=== PATIENT | female | born 1950 | race Caucasian/White ===

== ENCOUNTER 2016-12-07 12:05 | Observation (INO) | payer MEDICARE ==
[~2016-12-07] VITALS: Ht 149.9 cm; Wt 60.0 kg
[2016-12-07] VITALS (9 sets, daily range): BP systolic 102–162; BP diastolic 60–86; PULSE 75–86; RESP 16–20; TEMP 98–98.9; O2SAT 95–98
[~2016-12-07 12:05] MED LIST: ALEN1TAB48 PO; AMIO200T PO; ASPI-110 PO; Aspirin Chew PO; CALC1TAB30 PO; CYAN1TAB24 PO; DICL50TA3 PO; GLUC15009 PO; HYDR-3516 PO; KRIL300C PO; LEVO100T5 PO; LIPI40TA PO; METO25TA3 PO; MISO200T PO; PANT40TA3 PO; PLAV75TA29 PO; PRIM250T5 PO; PYRI100T PO; TEGR200T PO; TRIA37.5 PO; VITA100C2 PO
[2016-12-07] MEDS ORDERED: NITROGLYCERIN 0.4 MG SL 25 TABS/BTL SL ONE (12:15)
[2016-12-07] MEDS ORDERED: SODIUM CHLORIDE 0.9% FLUSH 5 ML FLUSH IVF PRN (12:15)
[2016-12-07] MEDS ORDERED: ASPIRIN 81 MG CHEW TAB PO ONE (12:15)
[2016-12-07 12:36] LABS: AUTOMATED NEUTROPHIL # 11.8 TH/MM3 (1.8-7.7); BASOPHIL # 0.1 TH/MM3 (0-0.2); BASOPHIL % 0.4 % (0.0-2.0); EOSINOPHIL # 0.5 TH/MM3 (0-0.4); EOSINOPHIL % 3.6 % (0.0-4.0); HEMATOCRIT 35.3 % (35.0-46.0); HEMO FLAGS DIFF FINAL; LYMPH % 5.5 % (9.0-44.0); LYMPHOCYTE # 0.8 TH/MM3 (1.0-4.8); MEAN CELL VOLUME 90.8 FL (80.0-100.0); MEAN CORPUSCULAR HEMOGLOBIN 29.9 PG (27.0-34.0); MEAN CORPUSCULAR HGB CONC 32.9 % (32.0-36.0); MONO % 6.7 % (0.0-8.0); NEUT % 83.8 % (16.0-70.0); PLATELET COUNT 575 TH/MM3 (150-450); RED BLOOD COUNT 3.88 MIL/MM3 (4.00-5.30); RED CELL DISTRIBUTION WIDTH 16.9 % (11.6-17.2); WHITE BLOOD COUNT 14.1 TH/MM3 (4.0-11.0)
[2016-12-07] MEDS ORDERED: BENA25CA4 PO (12:50)
[2016-12-07] MEDS ORDERED: FISH500C PO (12:50)
--- NOTE | 2016-12-07 12:53 | RADRPT ---
EXAM DATE/TIME: 12/07/2016 12:26 [facility] COMPARISON: CHEST SINGLE AP, November 24, 2016, 6:04. INDICATIONS : Chest pain post triple bypass on 11/23/16. MEDICAL HISTORY : None. SURGICAL HISTORY : CABG. ENCOUNTER: Initial ACUITY: 2 weeks PAIN SCORE: 10/10 LOCATION: Bilateral chest FINDINGS: Minimal parenchymal changes are present in the left base. The right lung is clear. Sternal wires an d bypass are noted. There is no pneumothorax. CONCLUSION: Minimal parenchymal changes left base increased from the comparison study. Sreekanth Contreras MD FACR on December 07, 2016 at 12:51 Board Certified Radiologist. This report was verified electronically.
[2016-12-07 12:54] LABS: ANION GAP 9 MEQ/L (5-15); APTT (PATIENT) 24.6 SEC (24.3-30.1); AST (GOT) 29 U/L (15-37); BICARBONATE 27.2 MEQ/L (21.0-32.0); BLOOD UREA NITROGEN 17 MG/DL (7-18); CHLORIDE 104 MEQ/L (98-107); GLOMERULAR FILTRATION RATE 61 ML/MIN (>89); INTERNATIONAL NORMALIZED RATIO 1.1 RATIO; MAGNESIUM 1.7 MG/DL (1.5-2.5); PROTHROMBIN TIME - PATIENT 12.4 SEC (9.8-11.6); SODIUM (NA) 140 MEQ/L (136-145)
[2016-12-07 12:59] LABS: ALKALINE PHOSPHATASE 84 U/L (45-117); ALT (GPT) 22 U/L (10-53); TOTAL BILIRUBIN ADULT 0.2 MG/DL (0.2-1.0)
--- NOTE | 2016-12-07 13:05 | PD ---
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 Zuluaga. [facility] today she started to develop chest pain again. She states that her drains were pulled out about a week or so ago. She's had chronic back pain since that time. She states she has been having there use her arms herself out of bed some. States she was sitting down icing her left leg where she had a vein harvest when she had the abrupt onset of the pain. States pain feels similar when she had her heart attack back in October. She otherwise had been feeling generally well prior to that. She does complain of some pain and swelling just above her knee on the left side where she had a harvest done. History Past Medical History Narrative Medical CAD, recent CABG Hypothyroidism Seizure Arthritis Hyperlipidemia Hypertension CKD Influenza Vaccination: Yes Menopausal: Yes Social History Alcohol Use: No Tobacco Use: No Allergies-Medications (Allergen,Severity, Reaction): Coded Allergies: Dilantin (Verified Allergy, Severe, HIVES, 12/07/16) Codeine (Verified Allergy, Unknown, 12/07/16) *MDRO Multi-Drug Resistant Organism (Verified Adverse Reaction, Unknown, MRSA, 12/07/16) MRSA screen POSITIVE - 11/22/16 Reported Meds & Prescriptions Reported Meds & Active Scripts Active Hydrocodone-Acetaminophen 5-325 mg Tab 1 Tab PO Q3H PRN Pantoprazole (Pantoprazole Sodium) 40 Mg Tab 40 Mg PO DAILY@06 Metoprolol Tartrate 25 Mg Tab 12.5 Mg PO BID Plavix (Clopidogrel Bisulfate) 75 Mg Tab 75 Mg PO DAILY Lipitor (Atorvastatin Calcium) 40 Mg Tab 80 Mg PO HS Amiodarone (Amiodarone HCl) 200 Mg Tab 200 Mg PO Q12HR Reported Benadryl Allergy (Diphenhydramine HCl) 25 Mg Cap 25 Mg PO Q6HR PRN Fish Oil ([place]-3 Fatty Acids) 500 Mg Cap 500 Mg PO DAILY Vitamin B-6 (Pyridoxine HCl) 100 Mg Tab 100 Mg PO DAILY Aspirin 81 (Aspirin) 81 Mg Tabdr 81 Mg PO DAILY Vitamin E 100 Unit Cap 100 Units PO DAILY Glucosamine 1,500 Mg Tab 1,500 Mg PO DAILY Calcium 600 + D (Calcium Carbonate-Cholecalciferol) 600-200 Mg-Unit Tab 1 Tab PO BID Alendronate (Alendronate Sodium) 70 Mg Tab 70 Mg PO Q7D Levothyroxine (Levothyroxine Sodium) 100 Mcg Tab 100 Mcg PO DAILY Triamterene-Hydrochlorothiazide 37.5-25 Mg Tab 1 Tab PO DAILY Diclofenac Sodium DR (Diclofenac Sodium) 50 Mg Tabdr 50 Mg PO BID Misoprostol 200 Mcg Tab 200 Mcg PO BID Tegretol (Carbamazepine) 200 Mg Tab 200 Mg PO TID Primidone 250 Mg Tab 250 Mg PO BID Review of Systems Except as stated in HPI: all other systems reviewed are Neg Physical Exam Narrative GENERAL: Well-appearing 66-year-old woman. Holding her left chest. Does not appear to be in acute distress. SKIN: Warm and dry. HEAD: Atraumatic. Normocephalic. CARDIOVASCULAR: Regular rate and rhythm. No murmur appreciated. No rub. RESPIRATORY: No accessory muscle use. Clear to auscultation. Breath sounds equal bilaterally. GASTROINTESTINAL: Abdomen soft, non-tender, nondistended. Hepatic and splenic margins not palpable. MUSCULOSKELETAL: No obvious deformities. Some edema of the left leg. The incisions on the left leg appear to be healing well. There is some palpable firmness in the distal thigh just above the knee medially. NEUROLOGICAL: Awake and alert. No obvious cranial nerve deficits. Motor grossly within normal limits. Normal speech. PSYCHIATRIC: Appropriate mood and affect; insight and judgment normal. Data Data Last Documented VS Vital Signs Date Time Temp Pulse Resp B/P Pulse Ox O2 Delivery O2 Flow Rate FiO2 12/07/16 14:06 86 19 121/69 98 Nasal Cannula 2 12/07/16 12:06 98.9 Orders Electrocardiogram (12/07/16 12:11) B-Type Natriuretic Peptide (12/07/16 12:11) Complete Blood Count With Diff (12/07/16 12:11) Comprehensive Metabolic Panel (12/07/16 12:11) D-Dimer (12/07/16 12:11) Magnesium (Mg) (12/07/16 12:11) Prothrombin Time / Inr (Pt) (12/07/16 12:11) Act Partial Throm Time (Ptt) (12/07/16 12:11) Troponin I (12/07/16 12:11) Lipase (12/07/16 12:11) Chest, Single Ap (12/07/16 12:11) Ecg Monitoring (12/07/16 12:11) Bilateral Bp Monitoring (12/07/16 12:11) Iv Access Insert/Monitor (12/07/16 12:11) Oximetry (12/07/16 12:11) Oxygen Administration (12/07/16 12:11) Aspirin Chew (Aspirin Chew) (12/07/16 12:15) Sodium Chloride 0.9% Flush (Ns Flush) (12/07/16 12:15) Nitroglycerin Sl (Nitrostat Sl) (12/07/16 12:15) Ct Pulmonary Angiogram (12/07/16 ) Consult Cardiology (12/07/16 ) Admit Order (Ed Use Only) (12/07/16 ) Admit To Inpatient (12/07/16 ) Code Status (12/07/16 14:24) Vital Signs (Adult) Q4H (12/07/16 14:24) Activity Oob With Assistance (12/07/16 14:24) ^ Irrigation Worker / Telemetry .CONTINUOUS (12/07/16 14:24) Diet Heart Healthy (12/07/16 Dinner) Sodium Chloride 0.9% Flush (Ns Flush) (12/07/16 14:30) Sodium Chloride 0.9% Flush (Ns Flush) (12/07/16 21:00) Acetaminophen (Tylenol) (12/07/16 15:00) Ondansetron Inj (Zofran Inj) (12/07/16 14:30) Magnesium Hydroxide Liq (Milk Of Magnesi (12/07/16 14:30) Resp Oxygen Vicente C Titrat 1-4 L (12/07/16 ) Pt Request For Service (12/07/16 14:24) Scd Bilateral/Knee High MARIAJOSE.BID (12/07/16 14:24) Naloxone Inj (Narcan Inj) (12/07/16 14:30) Inpatient Certification (12/07/16 ) ^ Notify Dr: Other (12/07/16 ) Nitroglycerin Sl (Nitrostat Sl) (12/07/16 14:30) Creatine Kinase (Cpk) (12/07/16 14:25) Creatine Kinase (Cpk) (12/07/16 20:25) Troponin I (12/07/16 14:25) Troponin I (12/07/16 20:25) Electrocardiogram (12/07/16 14:25) Electrocardiogram (12/07/16 20:25) Labs Laboratory Tests Test 12/07/16 12:20 White Blood Count 14.1 TH/MM3 Red Blood Count 3.88 MIL/MM3 Hemoglobin 11.6 GM/DL Hematocrit 35.3 % Mean Corpuscular Volume 90.8 FL Mean Corpuscular Hemoglobin 29.9 PG Mean Corpuscular Hemoglobin 32.9 % Concent Red Cell Distribution Width 16.9 % Platelet Count 575 TH/MM3 Mean Platelet Volume 7.4 FL Neutrophils (%) (Auto) 83.8 % Lymphocytes (%) (Auto) 5.5 % Monocytes (%) (Auto) 6.7 % Eosinophils (%) (Auto) 3.6 % Basophils (%) (Auto) 0.4 % Neutrophils # (Auto) 11.8 TH/MM3 Lymphocytes # (Auto) 0.8 TH/MM3 Monocytes # (Auto) 1.0 TH/MM3 Eosinophils # (Auto) 0.5 TH/MM3 Basophils # (Auto) 0.1 TH/MM3 CBC Comment DIFF FINAL Differential Comment Prothrombin Time 12.4 SEC Prothromb Time International 1.1 RATIO Ratio Activated Partial 24.6 SEC Thromboplast Time D-Dimer Quantitative (PE/DVT) 5.59 MG/L FEU Sodium Level 140 MEQ/L Potassium Level 4.0 MEQ/L Chloride Level 104 MEQ/L Carbon Dioxide Level 27.2 MEQ/L Anion Gap 9 MEQ/L Blood Urea Nitrogen 17 MG/DL Creatinine 0.92 MG/DL Estimat Glomerular Filtration 61 ML/MIN Rate Random Glucose 99 MG/DL Calcium Level 8.0 MG/DL Magnesium Level 1.7 MG/DL Total Bilirubin 0.2 MG/DL Aspartate Amino Transf 29 U/L (AST/SGOT) Alanine Aminotransferase 22 U/L (ALT/SGPT) Alkaline Phosphatase 84 U/L Troponin I 0.03 NG/ML B-Type Natriuretic Peptide 163 PG/ML Total Protein 6.6 GM/DL Albumin 2.4 GM/DL Lipase 380 U/L [facility] Medical Decision Making Medical Screen Exam Complete: Yes Emergency Medical Condition: Yes Interpretation(s) My review of EKG: Normal sinus rhythm at a rate of 87, leftward axis, lateral T wave inversions. Compared to previous EKG from November 24, no significant change in extensive T-wave inversions. LABS: CBC remarkable for mild leukocytosis. CMP unremarkable Troponin negative BNP 163 Lipase normal D-dimer 5.59 Chest x-ray: Minimal parenchymal changes of the left base. CTA: Negative for PE. Lower lobe parenchymal consolidation a small moderate left-sided pleural effusion. Differential Diagnosis Myocardial ischemia, PE, sternal pain, pericarditis, other Narrative Course Medical decision making INITIAL: 66 year-old woman presents to the emergency department status post CABG with chest pain. EKG shows diffuse T wave inversions, similar to previous. Patient looks well. We'll check labs, x-ray, likely admission and discussion with cardiology. FINAL: Initial workup unremarkable. Probably musculoskeletal. Given patient's symptoms however we'll plan on admission for observation. Spoke with the Dr. Johnson, on-call [employer] admissions representative for Dr. campos, will consult on patient. Spoke with Dr. Scott, will admit patient. Yehuda Marshall MD Dec 07, 2016 13:04
[2016-12-07] MEDS ORDERED: ONDANSETRON HCL 4 MG/2 ML VIAL IVP PRN (14:30)
[2016-12-07] MEDS ORDERED: ACETAMINOPHEN/HYDROcodone 325 MG/5 MG TAB PO PRN (14:30)
[2016-12-07] MEDS ORDERED: NALOXONE HCL 0.4 MG/ML AMP IV PRN (14:30)
[2016-12-07] MEDS ORDERED: NITROGLYCERIN 0.4 MG SL 25 TABS/BTL SL PRN (14:30)
[2016-12-07] MEDS ORDERED: MAGNESIUM HYDROXIDE SUSP 30 ML CUP PO PRN (14:30)
[2016-12-07] MEDS ORDERED: SODIUM CHLORIDE 0.9% FLUSH 5 ML FLUSH FLUSH PRN (14:30)
[2016-12-07] MEDS ORDERED: diphenhydrAMINE HCL 25 MG CAP PO PRN (14:30)
[2016-12-07] MEDS ORDERED: IOHEXOL 350 MG/ML 10 ML VIAL (for RAD DIAG) IV ONE (14:35)
[2016-12-07] MEDS ORDERED: ACETAMINOPHEN 325 MG TAB PO PRN (15:00)
--- NOTE | 2016-12-07 15:12 | RADRPT ---
EXAM DATE/TIME: 12/07/2016 14:10 [facility] COMPARISON: CHEST SINGLE AP, December 07, 2016, 12:26. INDICATIONS : Stabbing chest pain that radiates to back, pedal edema. IV CONTRAST: 79 cc Omnipaque 350 (iohexol) IV RADIATION DOSE: 23.14 CTDIvol (mGy) MEDICAL HISTORY : Seizures. Hypertension. Cardiovascular disease SURGICAL HISTORY : Tubal ligation. CABG ENCOUNTER: Initial ACUITY: 1 day PAIN SCALE: 7/10 LOCATION: chest TECHNIQUE: Volumetric scanning of the chest was performed using a pulmonary embolism protocol MIP images were re constructed. Using automated exposure control and adjustment of the mA and/or kV according to patien t size, radiation dose was kept as low as reasonably achievable to obtain optimal diagnostic quality images. FINDINGS: PULMONARY ARTERIES: No filling defects are seen in the pulmonary arteries through the segmental level. LUNGS: Parenchymal consolidation left lower lobe PLEURAE: Moderate size left pleural effusion MEDIASTINUM: There is good visualization of the great vessels of the middle mediastinum. No evidence of mediastin al or hilar adenopathy/mass. MUSCULOSKELETAL: Within normal limits for patient age. Evidence of prior median sternotomy probable CABG MISCELLANEOUS: The visualized upper abdominal organs demonstrate no acute abnormality. CONCLUSION: Negative for pulmonary embolization. Left lower lobe parenchymal consolidation with small to moderate size the left pleural effusion Greg Sandoval MD on December 07, 2016 at 15:08 Board Certified Radiologist. This report was verified electronically.
--- NOTE | 2016-12-07 17:22 | HHI.HP ---
HPI Service [facility] Hospitalists Primary Care Physician Rob Isaacs Jr, MD Admission Diagnosis chest pain, rule out [place] Chief Complaint: chest pain Travel History International Travel<30 Days: No Contact w/Intl Traveler <30 Da: No Traveled to Known Affected Are: No History of Present Illness Pt is a 66 y/o F admitted at [facility] 11/21-11/27/16 d/t STEMI. Pt underwent LHC 11/21/[address] Easton Douglass and was recommended for CABG. Pt underwent 3V CABG with Dr. Dougie Zuluaga 11/23/16. Pt did well postoperatively and was transferred [facility]. On the day of admission pt developed left sided chest pain which started at 11AM and was continuous for 2 hours. Pt described the pain as severe. pt denied SOB, n/v, or diaphoresis. Pt's pain radiated through to her left back. Pain is worse when she takes a deep breath. Pt was admitted to [facility] for further evaluation and treatment. Review of Systems Constitutional: DENIES: Diaphoretic episodes, Fatigue, Fever, Weight gain, Weight loss, Chills, Dizziness, Change in appetite, Night Sweats Endocrine: DENIES: Heat/cold intolerance, Polydipsia, Polyuria, Polyphagia Eyes: DENIES: Blurred vision, Diplopia, Eye inflammation, Eye pain, Vision loss , Photosensitivity, Double Vision Ears, nose, mouth, throat: DENIES: Tinnitus, Hearing loss, Vertigo, Nasal discharge, Oral lesions, Throat pain, Hoarseness, Ear Pain, Running Nose, Epistaxis, Sinus Pain, Toothache, Odynophagia Respiratory: DENIES: Apneas, Cough, Snoring, Wheezing, Hemoptysis, Sputum production, Shortness of breath Cardiovascular: COMPLAINS OF: Chest pain, DENIES: Palpitations, Syncope, Dyspnea on Exertion, PND, Lower Extremity Edema, Orthopnea, Claudication Gastrointestinal: DENIES: Abdominal pain, Black stools, Bloody stools, BRB per rectum, Constipation, Diarrhea, GERD, Nausea, Reflux, Vomiting, Difficulty Swallowing, Anorexia Genitourinary: COMPLAINS OF: Dyspareunia, DENIES: Urinary frequency, Urinary incontinence, Urgency, Hematuria, Dysuria, Nocturia Musculoskeletal: DENIES: Joint pain, Muscle aches, Stiffness, Joint Swelling, Back pain, Neck pain Integumentary: DENIES: Abnormal pigmentation, Pruritus, Rash, Nail changes, Breast masses, Breast skin changes, Nipple discharge Hematologic/lymphatic: DENIES: Bruising, Lymphadenopathy Immunologic/allergic: DENIES: Eczema, Urticaria Neurologic: DENIES: Abnormal gait, Headache, Localized weakness, Paresthesias, Seizures, Speech Problems, Tremor, Poor Balance Psychiatric: DENIES: Anxiety, Confusion, Mood changes, Depression, Hallucinations, Agitation, Suicidal Ideation, Homicidal Ideation, Delusions, History of Bipolar, History of Schizophrenia Past Family Social History Past Medical History 1) HTN 2) CAD 3) seizure disorder 4) osteoporosis 5) hyperlipidemia 6) CKD, stage 3 7) GERD Past Surgical History 1) 3V CABG performed by Dr. Dougie Zuluaga 11/23/16 2) D&C 3) eyelid surgery 4) BTL Reported Medications Reported Meds & Active Scripts Active Hydrocodone-Acetaminophen 5-325 mg Tab 1 Tab PO Q3H PRN Pantoprazole (Pantoprazole Sodium) 40 Mg Tab 40 Mg PO DAILY@06 Metoprolol Tartrate 25 Mg Tab 12.5 Mg PO BID Plavix (Clopidogrel Bisulfate) 75 Mg Tab 75 Mg PO DAILY Lipitor (Atorvastatin Calcium) 40 Mg Tab 80 Mg PO HS Amiodarone (Amiodarone HCl) 200 Mg Tab 200 Mg PO Q12HR Reported Benadryl Allergy (Diphenhydramine HCl) 25 Mg Cap 25 Mg PO Q6HR PRN Fish Oil ([place]-3 Fatty Acids) 500 Mg Cap 500 Mg PO DAILY Vitamin B-6 (Pyridoxine HCl) 100 Mg Tab 100 Mg PO DAILY Aspirin 81 (Aspirin) 81 Mg Tabdr 81 Mg PO DAILY Vitamin E 100 Unit Cap 100 Units PO DAILY Glucosamine 1,500 Mg Tab 1,500 Mg PO DAILY Calcium 600 + D (Calcium Carbonate-Cholecalciferol) 600-200 Mg-Unit Tab 1 Tab PO BID Alendronate (Alendronate Sodium) 70 Mg Tab 70 Mg PO Q7D Levothyroxine (Levothyroxine Sodium) 100 Mcg Tab 100 Mcg PO DAILY Triamterene-Hydrochlorothiazide 37.5-25 Mg Tab 1 Tab PO DAILY Diclofenac Sodium DR (Diclofenac Sodium) 50 Mg Tabdr 50 Mg PO BID Misoprostol 200 Mcg Tab 200 Mcg PO BID Tegretol (Carbamazepine) 200 Mg Tab 200 Mg PO TID Primidone 250 Mg Tab 250 Mg PO BID Allergies: Coded Allergies: Dilantin (Verified Allergy, Severe, HIVES, 12/07/16) Codeine (Verified Allergy, Unknown, 12/07/16) *MDRO Multi-Drug Resistant Organism (Verified Adverse Reaction, Unknown, MRSA, 12/07/16) MRSA screen POSITIVE - 11/22/16 Family History Non-contributory Social History - former smoker, smoked 44 years, quit in 2007 - no alcohol - no illicit street drugs Physical Exam Vital Signs Vital Signs Date Time Temp Pulse Resp B/P Pulse Ox O2 Delivery O2 Flow Rate FiO2 12/07/16 16:00 83 16 112/71 98 Nasal Cannula 2 12/07/16 14:06 86 19 121/69 98 Nasal Cannula 2 12/07/16 12:15 155/77 128/79 12/07/16 12:14 Nasal Cannula 2 12/07/16 12:14 96 Room Air 12/07/16 12:08 Nasal Cannula 2 12/07/16 12:06 98.9 86 18 162/86 96 Physical Exam GENERAL: This is a well-nourished, well-developed patient, in no apparent distress. SKIN: No rashes, ecchymoses or lesions. Cool and dry. HEAD: Atraumatic. Normocephalic. No temporal or scalp tenderness. EYES: Pupils equal round and reactive. Extraocular motions intact. No scleral icterus. No injection or drainage. ENT: Nose without bleeding, purulent drainage or septal hematoma. Throat without erythema, tonsillar hypertrophy or exudate. Uvula midline. Airway patent. NECK: Trachea midline. No JVD or lymphadenopathy. Supple, nontender, no meningeal signs. CARDIOVASCULAR: Regular rate and rhythm without murmurs, gallops, or rubs. RESPIRATORY: Clear to auscultation. Breath sounds equal bilaterally. No wheezes , rales, or rhonchi. GASTROINTESTINAL: Abdomen soft, non-tender, nondistended. No hepato-splenomegaly , or palpable masses. No guarding. MUSCULOSKELETAL: Extremities without clubbing, cyanosis, or edema. No joint tenderness, effusion, or edema noted. No calf tenderness. Negative Homans sign bilaterally. NEUROLOGICAL: Awake and alert. Cranial nerves II through XII intact. Motor and sensory grossly within normal limits. Five out of 5 muscle strength in all muscle groups. Normal speech. Laboratory Laboratory Tests Test 12/07/16 12/07/16 12:20 14:30 White Blood Count 14.1 Red Blood Count 3.88 Hemoglobin 11.6 Hematocrit 35.3 Mean Corpuscular Volume 90.8 Mean Corpuscular Hemoglobin 29.9 Mean Corpuscular Hemoglobin 32.9 Concent Red Cell Distribution Width 16.9 Platelet Count 575 Mean Platelet Volume 7.4 Neutrophils (%) (Auto) 83.8 Lymphocytes (%) (Auto) 5.5 Monocytes (%) (Auto) 6.7 Eosinophils (%) (Auto) 3.6 Basophils (%) (Auto) 0.4 Neutrophils # (Auto) 11.8 Lymphocytes # (Auto) 0.8 Monocytes # (Auto) 1.0 Eosinophils # (Auto) 0.5 Basophils # (Auto) 0.1 CBC Comment DIFF FINAL Differential Comment Prothrombin Time 12.4 Prothromb Time International 1.1 Ratio Activated Partial 24.6 Thromboplast Time D-Dimer Quantitative (PE/DVT) 5.59 Sodium Level 140 Potassium Level 4.0 Chloride Level 104 Carbon Dioxide Level 27.2 Anion Gap 9 Blood Urea Nitrogen 17 Creatinine 0.92 Estimat Glomerular Filtration 61 Rate Random Glucose 99 Calcium Level 8.0 Magnesium Level 1.7 Total Bilirubin 0.2 Aspartate Amino Transf 29 (AST/SGOT) Alanine Aminotransferase 22 (ALT/SGPT) Alkaline Phosphatase 84 Troponin I 0.03 0.03 B-Type Natriuretic Peptide 163 Total Protein 6.6 Albumin 2.4 Lipase 380 Total Creatine Kinase 68 Result Diagram: 12/07/16 1220 12/07/16 1220 Imaging Last Impressions Chest X-Ray 12/07/16 1211 Signed Impressions: Service Date/Time: Wednesday, December 07, 2016 12:26 - CONCLUSION: Minimal parenchymal changes left base increased from the comparison study. Sreekanth Contreras MD FACR CT Angiography 12/07/16 0000 Signed Impressions: Service Date/Time: Wednesday, December 07, 2016 14:10 - CONCLUSION: Negative for pulmonary embolization. Left lower lobe parenchymal consolidation with small to moderate size the left pleural effusion Greg Sandoval MD Septic Shock Reassessment Heart: Regular rate and rhythm Lungs: Clear Skin: Warm Peripheral Pulses: Bounding Right Radial Bounding Left Radial Bounding Right Popliteal Bounding Left Popliteal Bounding Right Dorsalis Pedis Bounding Left Dorsalis Pedis Bounding Right Posterior Tibial Bounding Left Posterior Tibial Capillary Refill: Brisk Assessment and Plan Problem List: (1) Atypical chest pain Status: Acute Plan: - prior admission d/t STEMI 11/21-11/27/16 - 3V CABG 11/23/[address] Dougie Zuluaga - serial cardiac enzymes - serial EKGs - obtain cardiology consult - fasting lipid panel in AM - lipitor, plavix, metoprolol, ASA (2) Hypothyroid Status: Acute Plan: - levothyroxine (3) HTN (hypertension) Status: Chronic Plan: - stable - metoprolol - HCTZ (4) GERD (gastroesophageal reflux disease) Status: Chronic Plan: - protonix, misoprostol (5) Seizure disorder Status: Chronic Plan: - tegretol, primidone Problem Qualifiers (1) Hypothyroid: Qualified Code: E03.9 - Hypothyroidism, unspecified type (2) HTN (hypertension): Qualified Code: I10 - Essential hypertension (3) GERD (gastroesophageal reflux disease): Qualified Code: K21.9 - Gastroesophageal reflux disease, esophagitis presence not specified Ant Scott DO Dec 07, 2016 17:22
[2016-12-07] MEDS: carBAMazepine 200 MG TAB PO SCH (18:24)
--- NOTE | 2016-12-07 19:30 | MB ---
cc: MESERET CASSIDY ALAN S. M.D. VIEL, STEPHEN C. MD MCCOLLUM, ,DEVENDRA CHAPA DATE OF CONSULTATION: 12/07/2016. REASON FOR CONSULTATION: The patient is a 66-year-old white female I am asked to see for chest pain. HISTORY OF PRESENT ILLNESS: I have reviewed hospital records. On November 23 of last year, the patient came in with unstable angina / aborted S-T elevation MN. She underwent catheterization showing preserved ventricular function with triple-vessel disease. She had angioplasty of the posterior descending coronary artery but a stent would not pass. She subsequently underwent bypass surgery with left internal mammary artery to the LAD and vein graft to obtuse marginal #1 and the right - PDA. She has been in rehab. She has used her upper arms a lot. She notes occasional sharp substernal discomfort which is short-lived. Today, starting this morning, she has had sharp substernal discomfort which she also feels towards her back. This gets worse when she takes a deep breath. It is not positional and there are no other associated symptoms. It is better than this morning, but still present. EKG shows sinus rhythm with nonspecific T-wave changes. PAST MEDICAL HISTORY: 1. Cardiac as above. 2. Hypertension. 3. Hyperlipidemia 4. Chronic kidney disease. 5. Hypothyroidism. 6. Seizure disorder. 7. Osteoarthritis. PAST SURGICAL HISTORY: Tubal ligation. SOCIAL HISTORY: She is and her is here. She is a prior smoker but does not drink. MEDICATION ALLERGIES: 1. DILANTIN. 2. CODEINE. MEDICATION LIST: Reviewed. PRESENT MEDICATIONS: 1. Amiodarone. 2. Aspirin. 3. Atorvastatin. 4. Clopidogrel. 5. Diphenhydramine. 6. Levothyroxine. 7. Metoprolol. 8. Primidone. 9. Pyridoxine. 10. Pantoprazole. 11. Triamterene / hydrochlorothiazide. Chest x-ray showed postoperative changes with increased parenchymal changes at the left base. CT angiogram is pending. CBC remarkable for a mildly elevated white count at 14.1. PT/PTT normal with elevated D-dimer. Potassium 4.0, creatinine 0.92. Troponin negative. BNP level 163. Lipase normal. REVIEW OF SYSTEMS: Review of systems remarkable for the chest discomfort along with generalized arthritis. PHYSICAL EXAMINATION: GENERAL: On exam, she is alert and oriented times three. VITAL SIGNS: She is mildly hypertensive but afebrile. The vital signs are stable otherwise. SKIN: There are no xanthelasma and oropharyngeal mucosa normal. CHEST: With decreased breath sounds at the bases, but clear. CARDIOVASCULAR: JVD normal. S1, S2. No murmurs or gallops. ABDOMEN: Benign. EXTREMITIES: No cyanosis, clubbing or edema. PULSES: Carotids without bruits. Radials 1 to 2+. Femorals 1 to 2+ without bruits. Pedals trace to 1+. NEUROLOGIC: She was not ambulated. PROBLEMS: 1. Chest discomfort - this is pleuritic and appears noncardiac. Pulmonary embolus is being ruled out. If this is negative, I would assume that this is musculoskeletal. 2. Coronary artery disease 3. Hypertension. 4. Hyperlipidemia. 5. Hypothyroidism. RECOMMENDATIONS: 1. Continue home medication with eventual follow up with Dr. Cassidy. 2. CT angiogram results pending. Certainly she would need full anticoagulation if this were positive. 3. I will not follow but be available if needed. All questions have been answered. MD UCHE Higgins/WOO /2:27 PM /7:19 PM
--- NOTE | 2016-12-07 19:41 | EKG ---
Date Performed: 12/07/2016 Time Performed: 14:43:32 PTAGE: 66 years EKG: Sinus rhythm POSSIBLE LEFT ATRIAL ENLARGEMENT MODERATE T-WAVE ABNORMALITY, CONSIDER ANTEROLATERAL ISCHEMIA ABNORM AL ECG PREVIOUS TRACING : 12/07/2016 12.04 Since previous tracing, no significant change noted DOCTOR: Abhi Acharya Interpretating Date/Time 12/07/2016 19:39:16
--- NOTE | 2016-12-07 19:52 | EKG ---
Date Performed: 12/07/2016 Time Performed: 12:04:40 PTAGE: 66 years EKG: Sinus rhythm POSSIBLE LEFT ATRIAL ENLARGEMENT MODERATE T-WAVE ABNORMALITY, CONSIDER ANTEROLATERAL ISCHEMIA ABNORM AL ECG PREVIOUS TRACING : 11/24/2016 06.00 Since previous tracing, no significant change noted DOCTOR: Abhi Acharya Interpretating Date/Time 12/07/2016 19:51:37
[2016-12-07] MEDS: MISOPROSTOL 200 MCG TAB PO SCH (20:22)
[2016-12-07] MEDS: SODIUM CHLORIDE 0.9% FLUSH 5 ML FLUSH FLUSH SCH (20:22)
[2016-12-07] MEDS: AMIODARONE 200 MG TAB PO SCH (20:22)
[2016-12-07] MEDS: DICLOFENAC SODIUM 50 MG DELAYED RELEASE TAB PO SCH (20:23)
[2016-12-07] MEDS: PRIMIDONE 250 MG TAB PO SCH (20:23)
[2016-12-07] MEDS: METOPROLOL TARTRATE 25 MG TAB PO SCH (20:23)
[2016-12-07] MEDS ORDERED: ATORVASTATIN 40 MG TAB PO SCH (21:00)
[2016-12-08 04:09] VITALS: BP 116/62; PULSE 74; RESP 20; TEMP 98.1; O2SAT 96
[2016-12-08 05:28] VITALS: PULSE 77
[2016-12-08] MEDS ORDERED: PANTOPRAZOLE SOD 40 MG DELAYED RELEASE TAB PO SCH (06:00)
[2016-12-08 07:23] LABS: AUTOMATED NEUTROPHIL # 6.6 TH/MM3 (1.8-7.7); BASOPHIL # 0.1 TH/MM3 (0-0.2); EOSINOPHIL # 0.6 TH/MM3 (0-0.4); EOSINOPHIL % 6.2 % (0.0-4.0); HEMATOCRIT 32.4 % (35.0-46.0); HEMO FLAGS DIFF FINAL; LYMPH % 10.9 % (9.0-44.0); MEAN CELL VOLUME 90.7 FL (80.0-100.0); MEAN CORPUSCULAR HEMOGLOBIN 30.3 PG (27.0-34.0); MEAN CORPUSCULAR HGB CONC 33.4 % (32.0-36.0); MONO % 9.8 % (0.0-8.0); NEUT % 72.1 % (16.0-70.0); PLATELET COUNT 513 TH/MM3 (150-450); RED BLOOD COUNT 3.57 MIL/MM3 (4.00-5.30); RED CELL DISTRIBUTION WIDTH 16.9 % (11.6-17.2); WHITE BLOOD COUNT 9.1 TH/MM3 (4.0-11.0)
[2016-12-08 08:00] VITALS: BP 144/76; PULSE 77; PULSE 89; RESP 20; TEMP 98.2; O2SAT 98
[2016-12-08 08:32] VITALS: O2SAT 95
[2016-12-08] MEDS ORDERED: TRIAMTERENE/HCTZ 37.5 MG/25 MG TAB PO SCH (09:00)
[2016-12-08] MEDS ORDERED: ASPIRIN EC 81 MG TABEC PO SCH (09:00)
[2016-12-08] MEDS ORDERED: CLOPIDOGREL 75 MG TAB PO SCH (09:00)
[2016-12-08] MEDS: AMIODARONE 200 MG TAB PO SCH (09:00)
[2016-12-08] MEDS ORDERED: LEVOTHYROXINE SODIUM 100 MCG TAB PO SCH (09:00)
[2016-12-08] MEDS: DICLOFENAC SODIUM 50 MG DELAYED RELEASE TAB PO SCH (09:00)
[2016-12-08] MEDS: METOPROLOL TARTRATE 25 MG TAB PO SCH (10:04)
[2016-12-08] MEDS: MISOPROSTOL 200 MCG TAB PO SCH (10:04)
[2016-12-08] MEDS: SODIUM CHLORIDE 0.9% FLUSH 5 ML FLUSH FLUSH SCH (10:04)
[2016-12-08] MEDS: carBAMazepine 200 MG TAB PO SCH (10:05)
[2016-12-08] MEDS: PRIMIDONE 250 MG TAB PO SCH (10:05)
[2016-12-08 12:00] VITALS: BP 121/65; PULSE 93; RESP 20; TEMP 97.1; O2SAT 95
--- NOTE | 2016-12-08 14:38 | HHI.PR ---
Subjective Remarks No new complaints. Pt denies chest pain, palpitations, or SOB. Objective Vitals Vital Signs Date Time Temp Pulse Resp B/P Pulse Ox O2 Delivery O2 Flow Rate FiO2 12/08/16 12:00 97.1 93 20 121/65 95 12/08/16 08:32 95 21 12/08/16 08:00 89 12/08/16 08:00 98.2 77 20 144/76 98 12/08/16 05:28 77 12/08/16 04:09 98.1 74 20 116/62 96 12/07/16 23:27 98.0 75 20 102/60 95 12/07/16 21:46 16 12/07/16 21:14 98.1 83 20 140/81 97 12/07/16 20:00 97 12/07/16 18:01 85 17 117/60 98 12/07/16 16:00 83 16 112/71 98 Nasal Cannula 2 Result Diagram: 12/08/16 0700 12/07/16 1220 Imaging Last Impressions Chest X-Ray 12/07/16 1211 Signed Impressions: Service Date/Time: Wednesday, December 07, 2016 12:26 - CONCLUSION: Minimal parenchymal changes left base increased from the comparison study. Sreekanth Contreras MD FACR CT Angiography 12/07/16 0000 Signed Impressions: Service Date/Time: Wednesday, December 07, 2016 14:10 - CONCLUSION: Negative for pulmonary embolization. Left lower lobe parenchymal consolidation with small to moderate size the left pleural effusion Greg Sandoval MD Objective Remarks GENERAL: This is a well-nourished, well-developed patient, in no apparent distress. CARDIOVASCULAR: Regular rate and rhythm without murmurs, gallops, or rubs. RESPIRATORY: Clear to auscultation. Breath sounds equal bilaterally. No wheezes , rales, or rhonchi. GASTROINTESTINAL: Abdomen soft, non-tender, nondistended. Normal active bowel sounds MUSCULOSKELETAL: Extremities without clubbing, cyanosis, or edema. NEURO: Alert & Oriented x4 to person, place, time, situation. Moves all ext x4 A/P Problem List: (1) Atypical chest pain Status: Acute Plan: - prior admission d/t STEMI 11/21-11/27/16 - 3V CABG 11/23/[address] Sohit Zan - serial cardiac enzymes --> negative - serial EKGs --> NO acute ischemic changes - aprreciate cardiology consult - Case d/w Dr. Johnson (12/07/16) --> agrees with discharge back to SNF - lipitor, plavix, metoprolol, ASA - discharge back to [facility] today - see discharge orders (2) Hypothyroid Status: Acute Plan: - levothyroxine (3) HTN (hypertension) Status: Chronic Plan: - stable - metoprolol - HCTZ (4) GERD (gastroesophageal reflux disease) Status: Chronic Plan: - protonix, misoprostol (5) Seizure disorder Status: Chronic Plan: - tegretol, primidone Problem Qualifiers (1) Hypothyroid: Qualified Code: E03.9 - Hypothyroidism, unspecified type (2) HTN (hypertension): Qualified Code: I10 - Essential hypertension (3) GERD (gastroesophageal reflux disease): Qualified Code: K21.9 - Gastroesophageal reflux disease, esophagitis presence not specified Ant Scott DO Dec 08, 2016 14:38
--- NOTE | 2016-12-08 14:39 | HHI.DCPOC ---
Discharge Care Plan Diagnosis: (1) Atypical chest pain (2) Hypothyroid (3) Seizure disorder (4) GERD (gastroesophageal reflux disease) (5) HTN (hypertension) Goals to Promote Your Health * To prevent worsening of your condition and complications * To maintain your health at the optimal level Directions to Meet Your Goals Take your medications as prescribed Follow your dietary instruction Follow activity as directed Keep your appointments as scheduled Take your immunizations and boosters as scheduled If your symptoms worsen call your PCP, if no PCP go to Urgent Care Center or Emergency Room Smoking is Dangerous to Your Health. Avoid second hand smoke Call the 24-hour hour crisis hotline for domestic abuse at Ant Scott DO Dec 08, 2016 14:39
--- NOTE | 2016-12-08 15:51 | EKG ---
Date Performed: 12/07/2016 Time Performed: 21:11:22 PTAGE: 66 years EKG: Sinus rhythm LOW QRS VOLTAGE IN EXTREMITY LEADS MODERATE T-WAVE ABNORMALITY, CONSIDER ANTEROLATERAL ISCHEMIA ABNO RMAL ECG Compared to the PREVIOUS TRACING from 12/07/16 at 14:43, no significant change noted DOCTOR: Abhi Acharya Interpretating Date/Time 12/08/2016 15:50:19
== END 2016-12-08 15:51 | disposition home or self-care (01) ==
LOC: NEPC 12:05 → UNDOADMOB 14:26 → NEDA 14:26 → NEPGCP 17:56 → NEDA 17:56 → UNDODISOB 12-08 15:51
PROVIDERS: ADMIT Hospitalist; ATTEND Hospitalist
DX: R07.89 Other chest pain (principal); I25.10 Atherosclerotic heart disease of native coronary artery without angina pectoris; I12.9 Hypertensive chronic kidney disease with stage 1 through stage 4 chronic kidney disease, or unspecified chronic kidney disease; N18.3 Chronic kidney disease, stage 3 (moderate); R94.31 Abnormal electrocardiogram [ECG] [EKG]; I25.2 Old myocardial infarction; E03.9 Hypothyroidism, unspecified; E78.5 Hyperlipidemia, unspecified; G40.909 Epilepsy, unspecified, not intractable, without status epilepticus; K21.0 Gastro-esophageal reflux disease with esophagitis; M54.9 Dorsalgia, unspecified; G89.29 Other chronic pain; J90 Pleural effusion, not elsewhere classified; M19.90 Unspecified osteoarthritis, unspecified site; M81.0 Age-related osteoporosis without current pathological fracture; Z95.1 Presence of aortocoronary bypass graft; Z87.891 Personal history of nicotine dependence
CPT/HCPCS: 71010; 71275; 80053; 82550; 83690; 83735; 83880; 84484; 85025; 85379; 85610; 85730; 93005; 97162; 99285; G0378; G8987; G8988; Q9967

== ENCOUNTER 2016-12-14 16:57 | Inpatient (IN) | payer MEDICARE ==
[~2016-12-14] VITALS: Ht 149.9 cm; Wt 60.6 kg
[2016-12-14] VITALS: BP 108/59; PULSE 80; RESP 18; TEMP 98; O2SAT 94
[~2016-12-14 16:57] MED LIST changes: -Aspirin Chew PO; +BENA25CA4 PO; -CYAN1TAB24 PO; +FISH500C PO; -KRIL300C PO
[2016-12-14 17:01] VITALS: BP 153/78; PULSE 81; RESP 20; TEMP 98.1; O2SAT 96
--- NOTE | 2016-12-14 17:17 | PD ---
HPI Chief Complaint: Neuro Symptoms/ Deficits Time Seen by Provider: 17:15 Travel History International Travel<30 days: No Contact w/Intl Traveler<30days: No Traveled to known affect area: No History of Present Illness HPI 66-year-old female presents to the emergency department for evaluation of double vision, shakiness that started yesterday. She denies any headache or eye pain. No headache. No chest pain or abdominal pain. No vomiting. Patient does state that she is also on twice in the past 2 days, but did not fall. She states she fell to the right, but denies any weakness or syncope. Patient does report a history of CABG, hypertension, epilepsy, hypothyroidism. She states her last seizure was in the . She denies any fever. No vomiting. Patient was seen in October and underwent 3V CABG with Dr. Dougie Zuluaga 11/23/16. PFSH Past Medical History Asthma: No Anxiety: No Depression: No Heart Rhythm Problems: No Cancer: No Cardiovascular Problems: Yes (htn) High Cholesterol: Yes Chemotherapy: No Chest Pain: No Congestive Heart Failure: No COPD: No Diabetes: No Diminished Hearing: No Glaucoma: No Hepatitis: No Hiatal Hernia: No Hypertension: Yes Medical other: Yes (EPILEPSY) Musculoskeletal: No Neurologic: No Psychiatric: No Reproductive: No Respiratory: No Radiation Therapy: No Seizures: Yes Sleep Apnea: No Thyroid Disease: Yes Tetanus Vaccination: Unknown Menopausal: Yes Tubal Ligation: Yes Past Surgical History Gynecologic Surgery: Yes (TUBAL LIGATION) Pacemaker: No Other Surgery: Yes (bypass surgery,CABG) Social History Alcohol Use: No Tobacco Use: No Substance Use: No Allergies-Medications (Allergen,Severity, Reaction): Coded Allergies: Dilantin (Verified Allergy, Severe, HIVES, 12/14/16) Codeine (Verified Allergy, Unknown, 12/14/16) *MDRO Multi-Drug Resistant Organism (Verified Adverse Reaction, Unknown, MRSA, 12/14/16) MRSA screen POSITIVE - 11/22/16 Reported Meds & Prescriptions Reported Meds & Active Scripts Active Hydrocodone-Acetaminophen 5-325 mg Tab 1 Tab PO Q3H PRN Pantoprazole (Pantoprazole Sodium) 40 Mg Tab 40 Mg PO DAILY@06 Metoprolol Tartrate 25 Mg Tab 12.5 Mg PO BID Plavix (Clopidogrel Bisulfate) 75 Mg Tab 75 Mg PO DAILY Lipitor (Atorvastatin Calcium) 40 Mg Tab 80 Mg PO HS Amiodarone (Amiodarone HCl) 200 Mg Tab 200 Mg PO Q12HR Reported Benadryl Allergy (Diphenhydramine HCl) 25 Mg Cap 25 Mg PO Q6HR PRN Fish Oil ([place]-3 Fatty Acids) 500 Mg Cap 500 Mg PO DAILY Vitamin B-6 (Pyridoxine HCl) 100 Mg Tab 100 Mg PO DAILY Aspirin 81 (Aspirin) 81 Mg Tabdr 81 Mg PO DAILY Vitamin E 100 Unit Cap 100 Units PO DAILY Glucosamine 1,500 Mg Tab 1,500 Mg PO DAILY Calcium 600 + D (Calcium Carbonate-Cholecalciferol) 600-200 Mg-Unit Tab 1 Tab PO BID Alendronate (Alendronate Sodium) 70 Mg Tab 70 Mg PO Q7D Levothyroxine (Levothyroxine Sodium) 100 Mcg Tab 100 Mcg PO DAILY Triamterene-Hydrochlorothiazide 37.5-25 Mg Tab 1 Tab PO DAILY Diclofenac Sodium DR (Diclofenac Sodium) 50 Mg Tabdr 50 Mg PO BID Misoprostol 200 Mcg Tab 200 Mcg PO BID Tegretol (Carbamazepine) 200 Mg Tab 200 Mg PO TID Primidone 250 Mg Tab 250 Mg PO BID Review of Systems Except as stated in HPI: all other systems reviewed are Neg Physical Exam Narrative GENERAL: Well-developed well-nourished female patient, afebrile. SKIN: Warm and dry. HEAD: Normocephalic. Atraumatic. EYES: No scleral icterus. No injection or drainage. PERRLA. EOM intact. When one eye is closed, the patient no longer has double vision. ENT: Mucosa pink and moist. No erythema or exudates. No uvular edema. No uvular , palatal, or tonsillar deviation. Airway patent. Nasal turbinates appear normal without nasal blood, purulent drainage or septal hematoma. Bilateral tympanic membranes are clear without erythema or perforation. NECK: Supple, trachea midline. No JVD or lymphadenopathy. CARDIOVASCULAR: Regular rate and rhythm without murmurs, gallops, or rubs. RESPIRATORY: Breath sounds equal bilaterally. No accessory muscle use. Lungs sounds are clear to auscultation. GASTROINTESTINAL: Abdomen soft, non-tender, nondistended. MUSCULOSKELETAL: No cyanosis, or edema. Bilateral upper and lower extremity strength 5/5. All extremities are neurovascularly intact. BACK: Nontender without obvious deformity. No CVA tenderness. NEUROLOGICAL: Awake and alert. Cranial nerves II through XII intact. Motor and sensory grossly within normal limits. Five out of 5 muscle strength in all muscle groups. Normal speech. Jurd-ie-[id number] is normal bilaterally. Patient is able to touch her nose, but cannot defeated and is due to double vision. Data Data Last Documented VS Vital Signs Date Time Temp Pulse Resp B/P Pulse Ox O2 Delivery O2 Flow Rate FiO2 12/14/16 17:10 80 20 96 Room Air 12/14/16 17:01 98.1 153/78 Orders Electrocardiogram (12/14/16 17:13) Prothrombin Time / Inr (Pt) (12/14/16 17:13) Act Partial Throm Time (Ptt) (12/14/16 17:13) Complete Blood Count With Diff (12/14/16 17:13) Comprehensive Metabolic Panel (12/14/16 17:13) Creatine Kinase (Cpk) (12/14/16 17:13) Troponin I (12/14/16 17:13) Urinalysis - C+S If Indicated (12/14/16 17:13) Chest, Single Ap (12/14/16 17:13) Ecg Monitoring (12/14/16 17:13) Iv Access Insert/Monitor (12/14/16 17:13) Oximetry (12/14/16 17:13) Sodium Chloride 0.9% Flush (Ns Flush) (12/14/16 17:15) Mri Brain W/O Contrast (12/14/16 ) CKMB (12/14/16 17:20) CKMB% (12/14/16 17:20) Sodium Chlor 0.9% 1000 Ml Inj (Ns 1000 M (12/14/16 19:30) Blood Culture (12/14/16 19:26) Cefepime Inj (Maxipime Inj) (12/14/16 19:30) Azithromycin Inj (Zithromax Inj) (12/14/16 19:30) Labs Laboratory Tests Test 12/14/16 12/14/16 17:20 18:05 White Blood Count 9.3 TH/MM3 Red Blood Count 4.09 MIL/MM3 Hemoglobin 12.5 GM/DL Hematocrit 36.9 % Mean Corpuscular Volume 90.3 FL Mean Corpuscular Hemoglobin 30.5 PG Mean Corpuscular Hemoglobin 33.8 % Concent Red Cell Distribution Width 16.1 % Platelet Count 527 TH/MM3 Mean Platelet Volume 7.8 FL Neutrophils (%) (Auto) 70.2 % Lymphocytes (%) (Auto) 11.4 % Monocytes (%) (Auto) 8.5 % Eosinophils (%) (Auto) 9.2 % Basophils (%) (Auto) 0.7 % Neutrophils # (Auto) 6.5 TH/MM3 Lymphocytes # (Auto) 1.1 TH/MM3 Monocytes # (Auto) 0.8 TH/MM3 Eosinophils # (Auto) 0.9 TH/MM3 Basophils # (Auto) 0.1 TH/MM3 CBC Comment DIFF FINAL Differential Comment Prothrombin Time 12.7 SEC Prothromb Time International 1.1 RATIO Ratio Activated Partial 25.5 SEC Thromboplast Time Sodium Level 137 MEQ/L Potassium Level 4.4 MEQ/L Chloride Level 100 MEQ/L Carbon Dioxide Level 28.0 MEQ/L Anion Gap 9 MEQ/L Blood Urea Nitrogen 22 MG/DL Creatinine 1.14 MG/DL Estimat Glomerular Filtration 48 ML/MIN Rate Random Glucose 93 MG/DL Calcium Level 8.8 MG/DL Total Bilirubin 0.3 MG/DL Aspartate Amino Transf 152 U/L (AST/SGOT) Alanine Aminotransferase 56 U/L (ALT/SGPT) Alkaline Phosphatase 98 U/L Total Creatine Kinase 2565 U/L Creatine Kinase MB 24.0 NG/ML Creatine Kinase MB % 0.9 % Troponin I 0.03 NG/ML Total Protein 7.3 GM/DL Albumin 2.9 GM/DL Urine Color LIGHT-YELLOW Urine Turbidity CLEAR Urine pH 6.5 Urine Specific [place] 1.006 Urine Protein NEG mg/dL Urine Glucose (UA) NEG mg/dL Urine Ketones NEG mg/dL Urine Occult Blood NEG Urine Nitrite NEG Urine Bilirubin NEG Urine Urobilinogen LESS THAN 2.0 MG/DL Urine Leukocyte Esterase NEG Urine WBC 1 /hpf Microscopic Urinalysis Comment CULT NOT INDICATED MDM Medical Decision Making Medical Screen Exam Complete: Yes Emergency Medical Condition: Yes Medical Record Reviewed: Yes Interpretation(s) chest x-ray - CONCLUSION: Increasing consolidation left base. MRI of the brain - CONCLUSION: Negative MRI of the brain for an acute ischemic event. Differential Diagnosis ocular misalignment vs electrolyte abnormality versus CVA versus TIA Narrative Course 66-year-old female presents to the emergency department for evaluation of double vision and "shakiness" since yesterday. Patient has binocular diplopia on exam. EKG, CBC, CMP, CK, troponin, PT, PTT/INR, UA are ordered and pending. Chest x-ray and MRI of the brain without contrast are ordered and pending. EKG is unchanged since previous EKG. CBC shows normal WBC count 9.3, platelets elevated at 527, which is chronic for patient. CMP shows elevated BUNs 22, creatinine 1.14. AST is 152, AST 56. CK is 2565. Troponin is 0.03. Coags show no acute abnormality. UA shows no evidence of acute infection. Chest x- ray shows increasing consolidation left base. MRI of the brain without contrast is negative. I discussed the case with Dr. Goel who recommends admission. Patient is given normal saline 1 L IV bolus, cefepime, azithromycin. Patient will be brought into the emergency department for pneumonia, rhabdomyolysis. [facility] is paged. Diagnosis Primary Impression: Rhabdomyolysis Qualified Code: M62.82 - Non-traumatic rhabdomyolysis Additional Impression: Pneumonia Qualified Code: J18.1 - Pneumonia of left lower lobe due to infectious organism Admitting Information Admitting Physician Requests: Admit Aileen Reynolds Dec 14, 2016 17:17
--- NOTE | 2016-12-14 17:49 | RADRPT ---
EXAM DATE/TIME: 12/14/2016 17:25 [facility] COMPARISON: CHEST SINGLE AP, December 07, 2016, 12:26. INDICATIONS : Uncontrollable shaking of entire body. MEDICAL HISTORY : None. SURGICAL HISTORY : Triple cardiac bypass graft. ENCOUNTER: Initial ACUITY: 1 day PAIN SCORE: 0/10 LOCATION: Bilateral chest FINDINGS: There are increasing consolidation in left base. Right lung is clear. Heart is minimally enlarged. Sternal wires are intact. Pulmonary vascularity is normal. CONCLUSION: Increasing consolidation left base. Sreekanth Contreras MD FACR on December 14, 2016 at 17:47 Board Certified Radiologist. This report was verified electronically.
[2016-12-14 17:52] LABS: AUTOMATED NEUTROPHIL # 6.5 TH/MM3 (1.8-7.7); BASOPHIL # 0.1 TH/MM3 (0-0.2); BASOPHIL % 0.7 % (0.0-2.0); EOSINOPHIL # 0.9 TH/MM3 (0-0.4); EOSINOPHIL % 9.2 % (0.0-4.0); HEMATOCRIT 36.9 % (35.0-46.0); HEMO FLAGS DIFF FINAL; LYMPH % 11.4 % (9.0-44.0); LYMPHOCYTE # 1.1 TH/MM3 (1.0-4.8); MEAN CELL VOLUME 90.3 FL (80.0-100.0); MEAN CORPUSCULAR HEMOGLOBIN 30.5 PG (27.0-34.0); MEAN CORPUSCULAR HGB CONC 33.8 % (32.0-36.0); MONO % 8.5 % (0.0-8.0); NEUT % 70.2 % (16.0-70.0); PLATELET COUNT 527 TH/MM3 (150-450); RED BLOOD COUNT 4.09 MIL/MM3 (4.00-5.30); RED CELL DISTRIBUTION WIDTH 16.1 % (11.6-17.2); WHITE BLOOD COUNT 9.3 TH/MM3 (4.0-11.0)
[2016-12-14 18:02] LABS: APTT (PATIENT) 25.5 SEC (24.3-30.1); INTERNATIONAL NORMALIZED RATIO 1.1 RATIO; PROTHROMBIN TIME - PATIENT 12.7 SEC (9.8-11.6)
--- NOTE | 2016-12-14 18:07 | RADRPT ---
EXAM DATE/TIME: 12/14/2016 17:33 [facility] COMPARISON: No previous studies available for comparison. INDICATIONS : Diplopia MEDICAL HISTORY : Cardiovascular disease Hypertension. SURGICAL HISTORY : CABG Tubal ligation. ENCOUNTER: Initial ACUITY: 1 day PAIN SCORE: 0/10 LOCATION: Cranial TECHNIQUE: Multiplanar, multisequence MRI of the brain was performed without contrast. FINDINGS: There is no restricted diffusion evident. Scattered areas of high signal intensity are present in the periventricular white matter in a nonspec ific fashion. There is no parenchymal hemorrhage. There are no extra-axial fluid collections apprec iated. Midline structures are intact. CONCLUSION: Negative MRI of the brain for an acute ischemic event. Sreekanth Contreras MD FACR on December 14, 2016 at 17:57 Board Certified Radiologist. This report was verified electronically.
[2016-12-14 18:37] LABS: BLOOD, URINE NEG (NEG); COMMENT (UR) CULT NOT INDICATED; CULTURE IF INDICATED CULT NOT INDICATED; GLUCOSE,URINE NEG (NEG); KETONE, URINE NEG (NEG); NITRITE,URINE NEG (NEG); PH, URINE 6.5 (5.0-8.5); URINE COLOR LIGHT-YELLOW (YELLW/STRAW)
[2016-12-14 18:49] LABS: ALKALINE PHOSPHATASE 98 U/L (45-117); ALT (GPT) 56 U/L (10-53); ANION GAP 9 MEQ/L (5-15); AST (GOT) 152 U/L (15-37); BLOOD UREA NITROGEN 22 MG/DL (7-18); CHLORIDE 100 MEQ/L (98-107); CREATINE KINASE 2565 U/L (26-192); GLOMERULAR FILTRATION RATE 48 ML/MIN (>89); SODIUM (NA) 137 MEQ/L (136-145); TOTAL BILIRUBIN ADULT 0.3 MG/DL (0.2-1.0)
[2016-12-14 18:52] LABS: POTASSIUM 4.4 MEQ/L (3.5-5.1)
[2016-12-14 19:00] VITALS: BP 144/76; PULSE 83; RESP 20; O2SAT 96
[2016-12-14] MEDS ORDERED: SODIUM CHLOR 0.9% 1000 ML INJ 1,000 ML IV ONE (19:30)
[2016-12-14] MEDS ORDERED: CEFEPIME INJ 2,000 MG in SODIUM CHLORIDE 0.9% INJ 100 ML IV ONE (19:30)
[2016-12-14] MEDS ORDERED: AZITHROMYCIN INJ 500 MG in SODIUM CHLOR 0.9% 250 ML INJ 250 ML IV ONE (19:30)
--- NOTE | 2016-12-14 20:31 | HHI.HP ---
HPI Service [facility] Hospitalists Primary Care Physician Rob Isaacs Jr, MD Admission Diagnosis rhabdomyolosis; tremors Travel History International Travel<30 Days: No Contact w/Intl Traveler <30 Da: No Traveled to Known Affected Are: No History of Present Illness Pt is 66 yo female with recent 3v cabg and petit mal sz's. She was discharged to snf after bypass and returned once for left chest pain probably related to effusion/ consolidation. She was d/c'ed home 3d ago from snf and says someone lowered her tegretol dose. Since yesterday she has had head/facial tremors and tremors of arms and less so of her legs. no f/c, no n/v, no cough or sob. She had been ambulating with a walker. Pt does say similar sx's occured back when she and her neurologist were titrating her meds for petit mal sz's. she also had some blurry vision currently resolved. Review of Systems Other head and extremity tremors Past Family Social History Past Medical History "petit mal sz" cad, cabg x 3 hypothyroidism htn hyperlipidemia gerd CKD, stage 3 GERD D&C eyelid surgery BTL Reported Medications Hydrocodone-Acetaminophen 5-325 mg Tab 1 Tab PO Q3H PRN Metoprolol Tartrate 25 Mg Tab 12.5 Mg PO BID Plavix (Clopidogrel Bisulfate) 75 Mg Tab 75 Mg PO DAILY Lipitor (Atorvastatin Calcium) 40 Mg Tab 80 Mg PO HS Amiodarone (Amiodarone HCl) 200 Mg Tab 200 Mg PO Q12HR Benadryl Allergy (Diphenhydramine HCl) 25 Mg Cap 25 Mg PO Q6HR PRN Fish Oil ([place]-3 Fatty Acids) 500 Mg Cap 500 Mg PO DAILY Vitamin B-6 (Pyridoxine HCl) 100 Mg Tab 100 Mg PO DAILY Aspirin 81 (Aspirin) 81 Mg Tabdr 81 Mg PO DAILY Vitamin E 100 Unit Cap 100 Units PO DAILY Glucosamine 1,500 Mg Tab 1,500 Mg PO DAILY Calcium 600 + D (Calcium Carbonate-Cholecalciferol) 600-200 Mg-Unit Tab 1 Tab PO BID Alendronate (Alendronate Sodium) 70 Mg Tab 70 Mg PO Q7D Levothyroxine (Levothyroxine Sodium) 100 Mcg Tab 100 Mcg PO DAILY Triamterene-Hydrochlorothiazide 37.5-25 Mg Tab 1 Tab PO DAILY Diclofenac Sodium DR (Diclofenac Sodium) 50 Mg Tabdr 50 Mg PO BID Misoprostol 200 Mcg Tab 200 Mcg PO BID Tegretol (Carbamazepine) 200 Mg Tab 200 Mg PO TID...PT SAYS SHE SHOULD BE TAKING ...400MG PO QAM......200MG PO AT DINNER AND 300MG PO HS.... Primidone 250 Mg Tab 250 Mg PO BID Allergies: Coded Allergies: Dilantin (Verified Allergy, Severe, HIVES, 12/14/16) Codeine (Verified Allergy, Unknown, 12/14/16) *MDRO Multi-Drug Resistant Organism (Verified Adverse Reaction, Unknown, MRSA, 12/14/16) MRSA screen POSITIVE - 11/22/16 Family History nc Social History no etoh/tob..quit smoking 2007 after 43 yrs Physical Exam Vital Signs head tremoring hand mild tremor some cogwheeling of ue's heart reg lung good air entry abd s/nt ext no edema Vital Signs Date Time Temp Pulse Resp B/P Pulse Ox O2 Delivery O2 Flow Rate FiO2 12/14/16 19:00 83 20 144/76 96 Room Air 12/14/16 17:10 80 20 96 Room Air 12/14/16 17:01 98.1 81 20 153/78 96 Laboratory Laboratory Tests Test 12/14/16 12/14/16 17:20 18:05 White Blood Count 9.3 Red Blood Count 4.09 Hemoglobin 12.5 Hematocrit 36.9 Mean Corpuscular Volume 90.3 Mean Corpuscular Hemoglobin 30.5 Mean Corpuscular Hemoglobin 33.8 Concent Red Cell Distribution Width 16.1 Platelet Count 527 Mean Platelet Volume 7.8 Neutrophils (%) (Auto) 70.2 Lymphocytes (%) (Auto) 11.4 Monocytes (%) (Auto) 8.5 Eosinophils (%) (Auto) 9.2 Basophils (%) (Auto) 0.7 Neutrophils # (Auto) 6.5 Lymphocytes # (Auto) 1.1 Monocytes # (Auto) 0.8 Eosinophils # (Auto) 0.9 Basophils # (Auto) 0.1 CBC Comment DIFF FINAL Differential Comment Prothrombin Time 12.7 Prothromb Time International 1.1 Ratio Activated Partial 25.5 Thromboplast Time Sodium Level 137 Potassium Level 4.4 Chloride Level 100 Carbon Dioxide Level 28.0 Anion Gap 9 Blood Urea Nitrogen 22 Creatinine 1.14 Estimat Glomerular Filtration 48 Rate Random Glucose 93 Calcium Level 8.8 Total Bilirubin 0.3 Aspartate Amino Transf 152 (AST/SGOT) Alanine Aminotransferase 56 (ALT/SGPT) Alkaline Phosphatase 98 Total Creatine Kinase 2565 Creatine Kinase MB 24.0 Creatine Kinase MB % 0.9 Troponin I 0.03 Total Protein 7.3 Albumin 2.9 Urine Color LIGHT-YELLOW Urine Turbidity CLEAR Urine pH 6.5 Urine Specific [place] 1.006 Urine Protein NEG Urine Glucose (UA) NEG Urine Ketones NEG Urine Occult Blood NEG Urine Nitrite NEG Urine Bilirubin NEG Urine Urobilinogen LESS THAN 2.0 Urine Leukocyte Esterase NEG Urine WBC 1 Microscopic Urinalysis Comment CULT NOT INDICATED Date/Time Procedure Status Source Growth 12/14/16 19:45 Aerobic Blood Culture Received Blood Peripheral Pending 12/14/16 19:45 Anaerobic Blood Culture Received Blood Peripheral Pending Result Diagram: 12/14/16 1720 12/14/16 1720 Assessment and Plan Problem List: (1) Seizure disorder Status: Acute Plan: Pt is 66 yo with recent 3v cabg. sent to [facility]. He has post op left pleural effusion/consolidation but no clinical proof of pna After leaving the snf pt noted she had been receiving a lower dose of her tegretol which she takes for "petit mal sz's" She presents her with 1 day hx of tremors/shaking of her head and extremities. also noted to have rhabdo most likely due to statin..as before. ADDENDUM: STAT TEGRETOL LEVEL SHOWS ELEVATED LEVEL WHICH MIGHT BE CAUSING SOME OF HER SX'S: WILL RECHECK LEVEL IN AM hold statin check tegretol level resume tegretol level at old dose check tsh/free t4 ck in AM..no ivf for now due to worry of increase effusion. telemetry. cont other home meds. (2) Rhabdomyolysis Status: Acute Plan: see above (3) S/P CABG x 3 Status: Chronic Plan: cont bb, asa/plavix hold statin. (4) Hypothyroid Status: Chronic Plan: cont current med check level. Problem Qualifiers (1) Rhabdomyolysis: Qualified Code: M62.82 - Non-traumatic rhabdomyolysis Colin Castelan MD Dec 14, 2016 20:31
[2016-12-14] MEDS ORDERED: carBAMazepine 200 MG TAB PO ONE (20:45)
[2016-12-14] MEDS ORDERED: PILL SPLITTER OTHER PRN (20:45)
[2016-12-14] MEDS ORDERED: NON-FORMULARY DRUG (Calcium Carbonate-Cholecalciferol (Calcium 600 + D) 1 TAB) PO SCH (21:00)
[2016-12-14 21:27] LABS: FREE T4 1.38 NG/DL (0.76-1.46)
[2016-12-14] MEDS: CALCIUM/VITAMIN D 250 MG/125 U TAB PO SCH (21:38)
[2016-12-14] MEDS: METOPROLOL TARTRATE 25 MG TAB PO SCH (21:38)
[2016-12-14] MEDS: AMIODARONE 200 MG TAB PO SCH (21:38)
[2016-12-14 21:40] VITALS: BP 138/63
[2016-12-14 23:15] VITALS: PULSE 76
[2016-12-14] MEDS: PRIMIDONE 250 MG TAB PO SCH (23:34)
[2016-12-14] MEDS: MISOPROSTOL 200 MCG TAB PO SCH (23:34)
[2016-12-15] VITALS (7 sets, daily range): BP systolic 108–146; BP diastolic 55–74; PULSE 80–89; RESP 17–20; TEMP 97.7–98.4; O2SAT 94–98
[2016-12-15] MEDS: ZOLPIDEM TARTRATE 5 MG TAB PO PRN ×2 (04:02→21:44)
[2016-12-15] MEDS: LEVOTHYROXINE SODIUM 100 MCG TAB PO SCH (04:02)
[2016-12-15 08:12] LABS: BICARBONATE 24.4 MEQ/L (21.0-32.0); POTASSIUM 3.8 MEQ/L (3.5-5.1)
[2016-12-15] MEDS: MISOPROSTOL 200 MCG TAB PO SCH ×2 (08:42→21:31)
[2016-12-15] MEDS: CLOPIDOGREL 75 MG TAB PO SCH (08:42)
[2016-12-15] MEDS: CALCIUM/VITAMIN D 250 MG/125 U TAB PO SCH ×2 (08:42→21:31)
[2016-12-15] MEDS: METOPROLOL TARTRATE 25 MG TAB PO SCH ×2 (08:43→21:31)
[2016-12-15] MEDS: PRIMIDONE 250 MG TAB PO SCH ×2 (08:44→21:32)
[2016-12-15] MEDS: ASPIRIN EC 81 MG TABEC PO SCH (08:44)
[2016-12-15] MEDS: AMIODARONE 200 MG TAB PO SCH ×2 (08:44→21:31)
[2016-12-15 08:47] LABS: CKMB 15.8 NG/ML (0.5-3.6)
[2016-12-15] MEDS ORDERED: carBAMazepine 200 MG TAB PO SCH ×3 (09:00→21:00)
--- NOTE | 2016-12-15 10:44 | HHI.PR ---
Subjective Remarks still with some tremor of head/hands. double vision Objective Vitals heart reg lung diminished left base abd s/nt ext no edema Vital Signs Date Time Temp Pulse Resp B/P Pulse Ox O2 Delivery O2 Flow Rate FiO2 12/15/16 08:00 98.4 87 20 114/68 94 12/15/16 04:00 98.0 83 17 108/55 95 12/14/16 23:15 76 12/14/16 21:40 87 15 138/63 95 12/14/16 19:00 83 20 144/76 96 Room Air 12/14/16 17:10 80 20 96 Room Air 12/14/16 17:01 98.1 81 20 153/78 96 12/14/16 12/14/16 12/15/16 15:00 23:00 07:00 Intake Total 120 ml Balance 120 ml Intake Oral 120 ml # Voids 1 Result Diagram: 12/14/16 1720 12/15/16 0622 A/P Problem List: (1) Seizure disorder Status: Acute Plan: Pt is 66 yo with recent 3v cabg. sent to snf. He has post op left pleural effusion/consolidation but no clinical proof of pna After leaving the snf pt noted she had been receiving a lower dose of her tegretol which she takes for "petit mal sz's" She presents her with 1 day hx of tremors/shaking of her head and extremities. also noted to have rhabdo most likely due to statin..as before. She appears to have tegretol toxicity hold statin hold tegretol....check tegretol levels..resume when back to therapeutic levels ck in AM..no ivf for now due to worry of increase effusion. telemetry. cont other home meds. If sx's persist after above normalized might need to look for alternative dx. (2) Rhabdomyolysis Status: Acute Plan: see above (3) S/P CABG x 3 Status: Chronic Plan: cont bb, asa/plavix hold statin. (4) Hypothyroid Status: Chronic Plan: cont current med check level. Problem Qualifiers (1) Rhabdomyolysis: Qualified Code: M62.82 - Non-traumatic rhabdomyolysis Colin Castelan MD Dec 15, 2016 10:44
--- NOTE | 2016-12-15 13:40 | EKG ---
Date Performed: 12/14/2016 Time Performed: 17:14:47 PTAGE: 66 years EKG: Sinus rhythm POSSIBLE LEFT ATRIAL ENLARGEMENT MODERATE T-WAVE ABNORMALITY, CONSIDER ANTEROLATERAL ISCHEMIA MODERA TE T-WAVE ABNORMALITY, CONSIDER INFERIOR ISCHEMIA ABNORMAL ECG Compared to prior tracing no significa nt change PREVIOUS TRACING : 12/07/2016 21.11 DOCTOR: Klever Lux Interpretating Date/Time 12/15/2016 13:38:02
[2016-12-16] VITALS: BP 120/70; PULSE 82; RESP 18; TEMP 98.2; O2SAT 96
[2016-12-16 04:00] VITALS: BP 128/68; PULSE 85; RESP 18; TEMP 98.1; O2SAT 94
[2016-12-16] MEDS: LEVOTHYROXINE SODIUM 100 MCG TAB PO SCH (05:52)
[2016-12-16 07:59] VITALS: BP 117/62; PULSE 83; RESP 18; TEMP 97.8; O2SAT 96
[2016-12-16 08:00] LABS: CKMB 14.5 NG/ML (0.5-3.6)
[2016-12-16 08:04] VITALS: PULSE 81
[2016-12-16] MEDS: CALCIUM/VITAMIN D 250 MG/125 U TAB PO SCH ×2 (08:15→20:59)
[2016-12-16] MEDS: METOPROLOL TARTRATE 25 MG TAB PO SCH ×2 (08:15→21:00)
[2016-12-16] MEDS: MISOPROSTOL 200 MCG TAB PO SCH ×2 (08:15→20:59)
[2016-12-16] MEDS: AMIODARONE 200 MG TAB PO SCH ×2 (08:16→21:00)
[2016-12-16] MEDS: CLOPIDOGREL 75 MG TAB PO SCH (08:16)
[2016-12-16] MEDS: PRIMIDONE 250 MG TAB PO SCH ×2 (08:16→21:00)
[2016-12-16] MEDS: ASPIRIN EC 81 MG TABEC PO SCH ×2 (08:16→08:20)
[2016-12-16 16:00] VITALS: BP 150/73; PULSE 86; RESP 18; TEMP 98.4; O2SAT 96
--- NOTE | 2016-12-16 16:44 | HHI.PR ---
Subjective Remarks Pt reports that she had 7 loose BMs today She has some generalized abd cramping associated with the BMs Afebrile Objective Vitals Vital Signs Date Time Temp Pulse Resp B/P Pulse Ox O2 Delivery O2 Flow Rate FiO2 12/16/16 08:04 81 12/16/16 07:59 97.8 83 18 117/62 96 12/16/16 04:00 98.1 85 18 128/68 94 12/16/16 00:00 98.2 82 18 120/70 96 12/15/16 20:30 97.7 89 19 145/72 94 12/15/16 19:52 89 12/15/16 12/15/16 12/16/16 15:00 23:00 07:00 Intake Total 600 ml 240 ml Balance 600 ml 240 ml Intake Oral 600 ml 240 ml IV Total 0 ml # Voids 3 1 # Bowel Movements 0 Result Diagram: 12/14/16 1720 12/15/16 0622 Other Results Laboratory Tests Test 12/14/16 12/14/16 12/15/16 12/15/16 17:20 18:05 06:22 18:15 White Blood Count 9.3 TH/MM3 Red Blood Count 4.09 MIL/MM3 Hemoglobin 12.5 GM/DL Hematocrit 36.9 % Mean Corpuscular Volume 90.3 FL Mean Corpuscular Hemoglobin 30.5 PG Mean Corpuscular Hemoglobin 33.8 % Concent Red Cell Distribution Width 16.1 % Platelet Count 527 TH/MM3 Mean Platelet Volume 7.8 FL Neutrophils (%) (Auto) 70.2 % Lymphocytes (%) (Auto) 11.4 % Monocytes (%) (Auto) 8.5 % Eosinophils (%) (Auto) 9.2 % Basophils (%) (Auto) 0.7 % Neutrophils # (Auto) 6.5 TH/MM3 Lymphocytes # (Auto) 1.1 TH/MM3 Monocytes # (Auto) 0.8 TH/MM3 Eosinophils # (Auto) 0.9 TH/MM3 Basophils # (Auto) 0.1 TH/MM3 CBC Comment DIFF FINAL Differential Comment Prothrombin Time 12.7 SEC Prothromb Time International 1.1 RATIO Ratio Activated Partial 25.5 SEC Thromboplast Time Sodium Level 137 MEQ/L 141 MEQ/L Potassium Level 4.4 MEQ/L 3.8 MEQ/L Chloride Level 100 MEQ/L 107 MEQ/L Carbon Dioxide Level 28.0 MEQ/L 24.4 MEQ/L Anion Gap 9 MEQ/L 10 MEQ/L Blood Urea Nitrogen 22 MG/DL 17 MG/DL Creatinine 1.14 MG/DL 0.99 MG/DL Estimat Glomerular Filtration 48 ML/MIN 56 ML/MIN Rate Random Glucose 93 MG/DL 87 MG/DL Calcium Level 8.8 MG/DL 8.1 MG/DL Total Bilirubin 0.3 MG/DL Aspartate Amino Transf 152 U/L (AST/SGOT) Alanine Aminotransferase 56 U/L (ALT/SGPT) Alkaline Phosphatase 98 U/L Total Creatine Kinase 2565 U/L 2168 U/L Creatine Kinase MB 24.0 NG/ML 15.8 NG/ML Creatine Kinase MB % 0.9 % 0.7 % Troponin I 0.03 NG/ML Total Protein 7.3 GM/DL Albumin 2.9 GM/DL Free Thyroxine 1.38 NG/DL Thyroid Stimulating Hormone 5.180 uIU/ML 3rd Gen Carbamazepine (Tegretol) Level 16.4 MCG/ML 13.2 MCG/ML 9.3 MCG/ML Urine Color LIGHT-YELLOW Urine Turbidity CLEAR Urine pH 6.5 Urine Specific [place] 1.006 Urine Protein NEG mg/dL Urine Glucose (UA) NEG mg/dL Urine Ketones NEG mg/dL Urine Occult Blood NEG Urine Nitrite NEG Urine Bilirubin NEG Urine Urobilinogen LESS THAN 2.0 MG/DL Urine Leukocyte Esterase NEG Urine WBC 1 /hpf Microscopic Urinalysis Comment CULT NOT INDICATED Test 12/16/16 06:17 Total Creatine Kinase 2667 U/L Creatine Kinase MB 14.5 NG/ML Creatine Kinase MB % 0.5 % Carbamazepine (Tegretol) Level 9.9 MCG/ML Imaging Last Impressions Chest X-Ray 12/14/16 1713 Signed Impressions: Service Date/Time: Wednesday, December 14, 2016 17:25 - CONCLUSION: Increasing consolidation left base. Sreekanth Contreras MD FACR Brain MRI 12/14/16 0000 Signed Impressions: Service Date/Time: Wednesday, December 14, 2016 17:33 - CONCLUSION: Negative MRI of the brain for an acute ischemic event. Sreekanth Contreras MD FACR Objective Remarks General: NAD, AAOx3 Chest: Diminished breath sounds at the left base Cardiac: Regular Abd: +BS, soft mild diffuse tenderness Ext: No edema A/P Problem List: (1) Seizure disorder Status: Acute Plan: - Pt is 66 y/o with previous admission d/t STEMI 11/21-11/27/16 and underwent 3V CABG 11/23/[address] Dougie Zuluaga. - Pt was sent to SNF following that admission - She was found to have a post op left pleural effusion/consolidation on CTA on 12/07/16 but no clinical proof of PNA - After leaving the SNF pt noted she had been receiving a lower dose of her Tegretol which she takes for "petit mal sz's" - [place] [facility] [place] with 1 day hx of tremors/shaking of her head and extremities. - She was found to have Tegretol toxicity and also noted to have rhabdo most likely due to statin - Her statin has been held - Tegretol was held following admission. Her levels returned to back to therapeutic level on 12/15 and pt was given a dose of Tegretol 300mg x one dose on 12/15. Tegretol level was 9.9 today. Recheck in AM - CK levels are 2565 (12/14) --> 2168 (12/15) --> 2667 (12/16) - IVF had been held due to worry of increasing her previously noted effusion but pts CK is worse today and pt has been having diarrhea today - Start NS @ 50mL/hr - Monitor clinical status closely - Check stool studies to rule out C. diff. - Telemetry. 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 (4) Hypothyroid Status: Chronic Plan: - TSH 5.180/Free T4 1.38 - Cont current med Assessment and Plan Patient examined. Assessment and plan formulated with Alanna Cotton PA-C. I agree with the above. Problem Qualifiers (1) Rhabdomyolysis: Qualified Code: M62.82 - Non-traumatic rhabdomyolysis Alanna Cotton Dec 16, 2016 16:44 Ant Scott DO Dec 26, 2016 22:29
[2016-12-16] MEDS: SODIUM CHLOR 0.9% 1000 ML INJ 1,000 ML IV SCH (18:40)
[2016-12-16 20:00] VITALS: BP 145/72; PULSE 88; PULSE 94; RESP 18; TEMP 98; O2SAT 96
[2016-12-16 20:02] LABS: CKMB 22.2 NG/ML (0.5-3.6)
[2016-12-17] VITALS (7 sets, daily range): BP systolic 118–156; BP diastolic 59–73; PULSE 77–90; RESP 16–20; TEMP 97.9–98.4; O2SAT 94–98
[2016-12-17 00:39] LABS: C. DIFF EPI 027 PRESUMPTIVE NEGATIVE (NEGATIVE); C. DIFF TOXIN PCR NEGATIVE (NEGATIVE)
[2016-12-17] MEDS: ZOLPIDEM TARTRATE 5 MG TAB PO PRN ×2 (01:37→23:11)
[2016-12-17] MEDS: LEVOTHYROXINE SODIUM 100 MCG TAB PO SCH (05:59)
[2016-12-17 07:21] LABS: BICARBONATE 27.1 MEQ/L (21.0-32.0); POTASSIUM 3.5 MEQ/L (3.5-5.1)
[2016-12-17] MEDS: AMIODARONE 200 MG TAB PO SCH ×2 (08:26→20:38)
[2016-12-17] MEDS: PRIMIDONE 250 MG TAB PO SCH ×2 (08:26→20:38)
[2016-12-17] MEDS: CALCIUM/VITAMIN D 250 MG/125 U TAB PO SCH ×2 (08:26→20:38)
[2016-12-17] MEDS: METOPROLOL TARTRATE 25 MG TAB PO SCH ×2 (08:26→20:38)
[2016-12-17] MEDS: ASPIRIN EC 81 MG TABEC PO SCH (08:26)
[2016-12-17] MEDS: MISOPROSTOL 200 MCG TAB PO SCH ×2 (08:26→20:38)
[2016-12-17] MEDS: CLOPIDOGREL 75 MG TAB PO SCH (08:26)
[2016-12-17] MEDS: ACETAMINOPHEN/HYDROcodone 325 MG/5 MG TAB PO PRN (11:38)
--- NOTE | 2016-12-17 13:55 | HHI.PR ---
Subjective Remarks Pt still having significant diarrhea. She reports 15 BMs overnight and into today Stools were negative for C. diff. Objective Vitals Vital Signs Date Time Temp Pulse Resp B/P Pulse Ox O2 Delivery O2 Flow Rate FiO2 12/17/16 12:00 97.9 77 18 139/73 97 12/17/16 08:00 98.1 85 16 118/59 94 12/17/16 07:53 83 12/17/16 04:00 97.9 88 18 138/73 96 12/17/16 00:00 98.4 84 18 154/72 98 12/16/16 20:00 88 12/16/16 20:00 98.0 94 18 145/72 96 12/16/16 16:00 98.4 86 18 150/73 96 12/16/16 12/16/16 12/17/16 15:00 23:00 07:00 Intake Total 480 ml 360 ml Output Total 700 ml Balance -220 ml 360 ml Intake Oral 480 ml 360 ml Output Urine Total 700 ml # Voids 7 # Bowel Movements 4 Result Diagram: 12/14/16 1720 12/17/16 0553 Other Results Laboratory Tests Test 12/15/16 12/16/16 12/16/16 12/16/16 18:15 06:17 18:47 23:25 Carbamazepine (Tegretol) Level 9.3 MCG/ML 9.9 MCG/ML Total Creatine Kinase 2667 U/L 3330 U/L Creatine Kinase MB 14.5 NG/ML 22.2 NG/ML Creatine Kinase MB % 0.5 % 0.7 % Stool C. difficile Toxin (PCR) NEGATIVE Stl C. difficile Toxin PRESUMPTIVE Epiderm 027 NEGATIVE Test 12/17/16 05:53 Sodium Level 140 MEQ/L Potassium Level 3.5 MEQ/L Chloride Level 103 MEQ/L Carbon Dioxide Level 27.1 MEQ/L Anion Gap 10 MEQ/L Blood Urea Nitrogen 11 MG/DL Creatinine 0.76 MG/DL Estimat Glomerular Filtration 76 ML/MIN Rate Random Glucose 93 MG/DL Calcium Level 8.0 MG/DL Carbamazepine (Tegretol) Level 3.3 MCG/ML Imaging Last Impressions Chest X-Ray 12/14/16 1713 Signed Impressions: Service Date/Time: Wednesday, December 14, 2016 17:25 - CONCLUSION: Increasing consolidation left base. Sreekanth Contreras MD FACR Brain MRI 12/14/16 0000 Signed Impressions: Service Date/Time: Wednesday, December 14, 2016 17:33 - CONCLUSION: Negative MRI of the brain for an acute ischemic event. Sreekanth Contreras MD FACR Objective Remarks General: NAD, AAOx3 Chest: Diminished breath sounds at the left base Cardiac: Regular Abd: +BS, soft mild diffuse tenderness Ext: No edema A/P Problem List: (1) Seizure disorder Status: Acute Plan: - Pt is 66 y/o with previous admission d/t STEMI 11/21-11/27/16 and underwent 3V CABG 11/23/[address] Dougie Zuluaga. - Pt was sent to [facility] following that admission - She was found to have a post op left pleural effusion/consolidation on CTA on 12/07/16 but no clinical proof of PNA - After leaving the SNF pt noted she had been receiving a lower dose of her Tegretol which she takes for "petit mal sz's" - She [place] [facility] [place] with 1 day hx of tremors/shaking of her head and extremities. - She was found to have Tegretol toxicity and also noted to have rhabdo most likely due to statin - Her statin has been held - Tegretol was held following admission. Her levels returned to back to therapeutic level on 12/15 and pt was given a dose of Tegretol 300mg x one dose on 12/14 and 12/15. Tegretol level was 9.9 today. Recheck of Tegretol level on 12/17 was subtherapeutic at 3.3. Resume Tegretol 200mg po BID, first dose now. Recheck level in AM - CK levels are 2565 (12/14) --> 2168 (12/15) --> 2667 (12/16) --> 3330 (12/17/16) - IVF had been held due to worry of increasing her previously noted effusion but pts CK is worse today and pt has been having significant diarrhea which started on 12/16 - NS @ 50mL/hr was started on 12/16 but worsening CK levels, increase fluids to 85mL/hr - CXR in AM - Monitor clinical status closely - Recheck BMP, CK, CK-MB in AM - Stool studies were negative for C. diff. - Check stool culture - Imodium PRN - Telemetry. 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 (4) Hypothyroid Status: Chronic Plan: - TSH 5.180/Free T4 1.38 - Cont current med Assessment and Plan Patient examined. Assessment and plan formulated with Alanna Cotton PA-C. I agree with the above. Problem Qualifiers (1) Rhabdomyolysis: Qualified Code: M62.82 - Non-traumatic rhabdomyolysis Alanna Cotton Dec 17, 2016 13:55 Ant Scott DO Dec 26, 2016 22:29
[2016-12-17] MEDS ORDERED: LOPERAMIDE HCL 2 MG CAP PO ONE (14:30)
[2016-12-17] MEDS: carBAMazepine 200 MG TAB PO SCH ×2 (15:01→20:38)
[2016-12-17] MEDS: SODIUM CHLOR 0.9% 1000 ML INJ 1,000 ML IV SCH (15:02)
[2016-12-18] VITALS (8 sets, daily range): BP systolic 113–160; BP diastolic 68–83; PULSE 79–93; RESP 16–20; TEMP 97.8–98.2; O2SAT 94–97
[2016-12-18] MEDS: SODIUM CHLOR 0.9% 1000 ML INJ 1,000 ML IV SCH ×2 (01:42→13:28)
[2016-12-18] MEDS: LEVOTHYROXINE SODIUM 100 MCG TAB PO SCH (04:29)
[2016-12-18] MEDS: ACETAMINOPHEN/HYDROcodone 325 MG/5 MG TAB PO PRN (04:29)
[2016-12-18] MEDS: AMIODARONE 200 MG TAB PO SCH ×2 (09:11→20:48)
[2016-12-18] MEDS: MISOPROSTOL 200 MCG TAB PO SCH ×2 (09:11→20:48)
[2016-12-18] MEDS: CALCIUM/VITAMIN D 250 MG/125 U TAB PO SCH ×2 (09:11→20:48)
[2016-12-18] MEDS: PRIMIDONE 250 MG TAB PO SCH ×2 (09:11→20:49)
[2016-12-18] MEDS: METOPROLOL TARTRATE 25 MG TAB PO SCH ×2 (09:11→20:49)
[2016-12-18] MEDS: CLOPIDOGREL 75 MG TAB PO SCH (09:11)
[2016-12-18] MEDS: ASPIRIN EC 81 MG TABEC PO SCH (09:11)
[2016-12-18] MEDS: carBAMazepine 200 MG TAB PO SCH ×2 (09:11→20:48)
[2016-12-18 09:41] LABS: BICARBONATE 24.4 MEQ/L (21.0-32.0); POTASSIUM 3.7 MEQ/L (3.5-5.1)
[2016-12-18 10:00] LABS: CKMB 21.9 NG/ML (0.5-3.6)
--- NOTE | 2016-12-18 11:08 | RADRPT ---
EXAM DATE/TIME: 12/18/2016 10:41 [facility] COMPARISON: CT PULMONARY ANGIOGRAM, December 07, 2016, 14:10. CHEST SINGLE AP, December 14, 2016, 17:25. INDICATIONS : Left posterior chest pain. MEDICAL HISTORY: Pleural effusion. SURGICAL HISTORY: CABG. ENCOUNTER: Initial ACUITY: 1 day PAIN SCORE: 2/10 LOCATION: Bilateral chest FINDINGS: Sternal wires from previous median sternotomy are noted. Right lung is clear. Minimal consolidative changes and effusion is present on the left. The amount of fluid on the left is stable in the inter carina. Compared to the CT scan of 12/07/2016 this pleural effusion occupies approximately one-fifth of t he left hemithorax. CONCLUSION: Stable chest. Sreekanth Contreras MD FACR on December 18, 2016 at 11:04 Board Certified Radiologist. This report was verified electronically.
--- NOTE | 2016-12-18 13:57 | HHI.PR ---
Subjective Remarks No new complaints. No further diarrhea. Overall pt feeling improved. Objective Vitals Vital Signs Date Time Temp Pulse Resp B/P Pulse Ox O2 Delivery O2 Flow Rate FiO2 12/18/16 12:00 97.8 80 16 147/69 97 12/18/16 08:20 79 12/18/16 08:00 98.0 16 113/80 94 12/18/16 04:00 98.2 84 20 115/83 95 12/18/16 00:00 98.0 85 20 139/68 94 12/17/16 20:00 88 12/17/16 20:00 98.2 90 20 145/68 96 12/17/16 16:00 98.3 79 20 156/71 96 12/17/16 12/17/16 12/18/16 15:00 23:00 07:00 Intake Total 360 ml 1125 ml Balance 360 ml 1125 ml Intake Oral 360 ml 280 ml IV Total 845 ml # Voids 3 2 # Bowel Movements 3 0 Result Diagram: 12/14/16 1720 12/18/16 0845 Other Results Laboratory Tests Test 12/16/16 12/16/16 12/17/16 12/18/16 18:47 23:25 05:53 08:45 Total Creatine Kinase 3330 U/L 2700 U/L Creatine Kinase MB 22.2 NG/ML 21.9 NG/ML Creatine Kinase MB % 0.7 % 0.8 % Stool C. difficile Toxin (PCR) NEGATIVE Stl C. difficile Toxin PRESUMPTIVE Epiderm 027 NEGATIVE Sodium Level 140 MEQ/L 142 MEQ/L Potassium Level 3.5 MEQ/L 3.7 MEQ/L Chloride Level 103 MEQ/L 109 MEQ/L Carbon Dioxide Level 27.1 MEQ/L 24.4 MEQ/L Anion Gap 10 MEQ/L 9 MEQ/L Blood Urea Nitrogen 11 MG/DL 6 MG/DL Creatinine 0.76 MG/DL 0.71 MG/DL Estimat Glomerular Filtration 76 ML/MIN 82 ML/MIN Rate Random Glucose 93 MG/DL 85 MG/DL Calcium Level 8.0 MG/DL 7.8 MG/DL Carbamazepine (Tegretol) Level 3.3 MCG/ML 5.3 MCG/ML Imaging Last Impressions Chest X-Ray 12/14/16 8383 Signed Impressions: Service Date/Time: Wednesday, December 14, 2016 17:25 - CONCLUSION: Increasing consolidation left base. Sreekanth G. Miles, MD FACR Brain MRI 12/14/16 0000 Signed Impressions: Service Date/Time: Wednesday, December 14, 2016 17:33 - CONCLUSION: Negative MRI of the brain for an acute ischemic event. Sreekanth Contreras MD FACR Objective Remarks General: NAD, AAOx3 Chest: Diminished breath sounds at the left base Cardiac: Regular Abd: +BS, soft mild diffuse tenderness Ext: No edema A/P Problem List: (1) Seizure disorder Status: Acute Plan: - Pt is 66 y/o with previous admission d/t STEMI 11/21-11/27/16 and underwent 3V CABG 11/23/[address] Dougie Zuluaga. - Pt was sent to SNF following that admission - She was found to have a post op left pleural effusion/consolidation on CTA on 12/07/16 but no clinical proof of PNA - After leaving the SNF pt noted she had been receiving a lower dose of her Tegretol which she takes for "petit mal sz's" - She presented to the ER at [facility] [place] on 12/14/16 with 1 day hx of tremors/shaking of her head and extremities. - She was found to have Tegretol toxicity and also noted to have rhabdo most likely due to statin - Her statin has been held - Tegretol was held following admission. Her levels returned to back to therapeutic level on 12/15 and pt was given a dose of Tegretol 300mg x one dose on 12/14 and 12/15. Tegretol level was 9.9 (12/16). Recheck of Tegretol level on 12/17 was subtherapeutic at 3.3. Tegretol 200mg po BID resumed on 12/17. Tegretol level 5.3 (12/18). Recheck level in AM - CK levels are 2565 (12/14) --> 2168 (12/15) --> 2667 (12/16) --> 3330 (12/17/) -- > 2700 (12/18) - IVF had been held due to worry of increasing her previously noted effusion but pts CK is worse today and pt has been having significant diarrhea which started on 12/16 - NS @ 50mL/hr was started on 12/16 but worsening CK levels and fluid rate was increased to 85mL/hr on 12/17 - CXR (12/18) --> stable chest with left pleural effusion occupies approx. 1/5 of the left hemithorax - Monitor clinical status closely - Recheck BMP, CK, CK-MB in AM - Repeat CXR in AM - Stool studies were negative for C. diff. - Diarrhea has resolved - Imodium PRN - Telemetry. 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 (4) Hypothyroid Status: Chronic Plan: - TSH 5.180/Free T4 1.38 - Cont current med Assessment and Plan Patient examined. Assessment and plan formulated with Alanna Cotton PA-C. I agree with the above. Problem Qualifiers (1) Rhabdomyolysis: Qualified Code: M62.82 - Non-traumatic rhabdomyolysis Alanna Cotton Dec 18, 2016 13:57 Ant Scott DO Dec 26, 2016 22:30
[2016-12-18] MEDS: SODIUM CHLORIDE 0.9% FLUSH 5 ML FLUSH IVF PRN (20:49)
[2016-12-18] MEDS: ZOLPIDEM TARTRATE 5 MG TAB PO PRN (20:49)
[2016-12-19 00:10] VITALS: BP 162/82; PULSE 77; RESP 16; TEMP 98; O2SAT 95
[2016-12-19] MEDS: ACETAMINOPHEN/HYDROcodone 325 MG/5 MG TAB PO PRN ×2 (01:05→20:31)
[2016-12-19] MEDS: SODIUM CHLOR 0.9% 1000 ML INJ 1,000 ML IV SCH ×2 (01:05→12:01)
[2016-12-19 04:31] VITALS: BP 132/63; PULSE 84; RESP 16; TEMP 98.4; O2SAT 95
[2016-12-19] MEDS: LEVOTHYROXINE SODIUM 100 MCG TAB PO SCH (05:26)
[2016-12-19 06:58] LABS: BICARBONATE 25.5 MEQ/L (21.0-32.0); POTASSIUM 3.3 MEQ/L (3.5-5.1)
[2016-12-19 07:15] LABS: CKMB 18.7 NG/ML (0.5-3.6)
[2016-12-19 08:00] VITALS: BP 150/80; PULSE 83; RESP 16; TEMP 97.9; O2SAT 94
[2016-12-19] MEDS: carBAMazepine 200 MG TAB PO SCH ×2 (08:56→20:31)
[2016-12-19] MEDS: AMIODARONE 200 MG TAB PO SCH ×2 (08:57→20:32)
[2016-12-19] MEDS: METOPROLOL TARTRATE 25 MG TAB PO SCH ×2 (08:57→20:29)
[2016-12-19] MEDS: PRIMIDONE 250 MG TAB PO SCH ×2 (08:57→20:31)
[2016-12-19] MEDS: CLOPIDOGREL 75 MG TAB PO SCH (08:57)
[2016-12-19] MEDS: CALCIUM/VITAMIN D 250 MG/125 U TAB PO SCH ×2 (08:57→20:28)
[2016-12-19] MEDS: MISOPROSTOL 200 MCG TAB PO SCH ×2 (08:57→20:30)
[2016-12-19] MEDS: ASPIRIN EC 81 MG TABEC PO SCH (08:58)
--- NOTE | 2016-12-19 09:40 | RADRPT ---
EXAM DATE/TIME: 12/19/2016 09:13 [facility] COMPARISON: CHEST PA & LAT, December 18, 2016, 10:41. INDICATIONS : Shortness of breath and left pleural effusion. MEDICAL HISTORY : Cardiovascular disease Hypertension. SURGICAL HISTORY : CABG Tubal ligation. ENCOUNTER: Subsequent ACUITY: 3 weeks PAIN SCORE: 0/10 LOCATION: chest FINDINGS: AP and lateral views of the chest were obtained and again demonstrates the patient is status post med ravi sternotomy. Abnormal opacity remains at the left lung base with obscuration of the left hemidiaph ragm and blunting the left costophrenic angle consistent with an effusion. There is no pneumothorax. The right lung is clear. There is no perihilar edema. The bony thorax is intact. CONCLUSION: [id number] left effusion again noted with abnormal opacity at the left lung ba se. Aba Hatfield MD on December 19, 2016 at 9:37 Board Certified Radiologist. This report was verified electronically.
--- NOTE | 2016-12-19 11:51 | HHI.PR ---
Subjective Remarks Pt nurse reports that earlier this morning the pt felt like she was going to have a seizure but did not have any seizures Objective Vitals Vital Signs Date Time Temp Pulse Resp B/P Pulse Ox O2 Delivery O2 Flow Rate FiO2 12/19/16 08:00 97.9 83 16 150/80 94 12/19/16 04:31 98.4 84 16 132/63 95 12/19/16 00:10 98.0 77 16 162/82 95 12/18/16 20:00 98.1 93 18 160/74 96 12/18/16 16:00 98.1 88 16 132/81 97 12/18/16 12:00 97.8 80 16 147/69 97 12/18/16 12/18/16 12/19/16 15:00 23:00 07:00 Intake Total 480 ml 1165 ml Output Total 300 ml Balance 180 ml 1165 ml Intake Oral 480 ml 380 ml IV Total 785 ml Output Urine Total 300 ml # Voids 3 # Bowel Movements 1 Result Diagram: 12/19/16 0513 Other Results Laboratory Tests Test 12/18/16 12/19/16 08:45 05:13 Sodium Level 142 MEQ/L 141 MEQ/L Potassium Level 3.7 MEQ/L 3.3 MEQ/L Chloride Level 109 MEQ/L 106 MEQ/L Carbon Dioxide Level 24.4 MEQ/L 25.5 MEQ/L Anion Gap 9 MEQ/L 10 MEQ/L Blood Urea Nitrogen 6 MG/DL 8 MG/DL Creatinine 0.71 MG/DL 0.70 MG/DL Estimat Glomerular Filtration 82 ML/MIN 83 ML/MIN Rate Random Glucose 85 MG/DL 82 MG/DL Calcium Level 7.8 MG/DL 7.7 MG/DL Total Creatine Kinase 2700 U/L 2494 U/L Creatine Kinase MB 21.9 NG/ML 18.7 NG/ML Creatine Kinase MB % 0.8 % 0.7 % Carbamazepine (Tegretol) Level 5.3 MCG/ML Imaging Last Impressions Chest X-Ray 12/19/16 0800 Signed Impressions: Service Date/Time: December 09:13 - CONCLUSION: [id number] left effusion again noted with abnormal opacity at the left lung base. Aba Hatfield MD Brain MRI 12/14/16 0000 Signed Impressions: Service Date/Time: Wednesday, December 14, 2016 17:33 - CONCLUSION: Negative MRI of the brain for an acute ischemic event. Sreekanth Contreras MD FACR Last Impressions Chest X-Ray 12/14/16 1713 Signed Impressions: Service Date/Time: Wednesday, December 14, 2016 17:25 - CONCLUSION: Increasing consolidation left base. Sreekanth Contreras MD FACR Brain MRI 12/14/16 0000 Signed Impressions: Service Date/Time: Wednesday, December 14, 2016 17:33 - CONCLUSION: Negative MRI of the brain for an acute ischemic event. Sreekanth Contreras MD FACR Objective Remarks General: NAD, AAOx3 Chest: Diminished breath sounds at the left base Cardiac: Regular Abd: +BS, soft mild diffuse tenderness Ext: No edema A/P Problem List: (1) Seizure disorder Status: Acute Plan: - Pt is 66 y/o with previous admission d/t STEMI 11/21-11/27/16 and underwent 3V CABG 11/23/[address] Dougie Zuluaga. - Pt was sent to SNF following that admission - She was found to have a post op left pleural effusion/consolidation on CTA on 12/07/16 but no clinical proof of PNA - After leaving the SNF pt noted she had been receiving a lower dose of her Tegretol which she takes for "petit mal sz's" - She presented to the ER at [facility] [place] on 12/14/16 with 1 day hx of tremors/shaking of her head and extremities. - She was found to have Tegretol toxicity and also noted to have rhabdo most likely due to statin - Her statin has been held - Tegretol was held following admission. Her levels returned to back to therapeutic level on 12/15 and pt was given a dose of Tegretol 300mg x one dose on 12/14 and 12/15. Tegretol level was 9.9 (12/16). Recheck of Tegretol level on 12/17 was subtherapeutic at 3.3. Tegretol 200mg po BID resumed on 12/17. Tegretol level 5.3 (12/18). - CK levels are 2565 (12/14) --> 2168 (12/15) --> 2667 (12/16) --> 3330 (12/17/) -- > 2700 (12/18) --> 2494 (12/19) - IVF had been held initially due to worry of increasing her previously noted effusion but pts CK is worsened and pt had been having significant diarrhea which started on 12/16 - Pt was started on NS @ 50mL/hr on 12/16 but she had worsening CK levels and fluid rate was increased to 85mL/hr on 12/17 - CXR (12/18) --> stable chest with left pleural effusion occupies approx. 1/5 of the left hemithorax - Repeat CXR (12/19) --> [id number] left effusion again noted with abnormal opacity at the left lung base. Pleural effusion appears to be increased on CXR today. Decrease fluids back down to 40mL/hr - Monitor clinical status closely - Recheck BMP, CK, CK-MB in AM - Repeat CXR in AM - May need to drain this effusion with a thoracentesis, hold Plavix in anticipation for this. - Stool studies were negative for C. diff. - Diarrhea has resolved - Imodium PRN - Telemetry. 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 (4) Hypothyroid Status: Chronic Plan: - TSH 5.180/Free T4 1.38 - Cont current med Assessment and Plan Patient examined. Assessment and plan formulated with Alanna Cotton PA-C. I agree with the above. Problem Qualifiers (1) Rhabdomyolysis: Qualified Code: M62.82 - Non-traumatic rhabdomyolysis Alanna Cotton Dec 19, 2016 11:51 Ant Scott DO Dec 26, 2016 22:30
[2016-12-19 12:05] VITALS: BP 156/72; PULSE 84; RESP 18; TEMP 98.2; O2SAT 97
[2016-12-19] MEDS ORDERED: LORazepam 2 MG/ML VIAL IV PUSH PRN (13:30)
[2016-12-19] MEDS: LOPERAMIDE HCL 2 MG CAP PO PRN ×2 (15:54→21:53)
[2016-12-19 16:05] VITALS: BP 171/84; PULSE 87; RESP 18; TEMP 98.5; O2SAT 95
[2016-12-19 20:00] VITALS: BP_SYST 136; BP_SYST 185; BP_DIAS 76; BP_DIAS 84; PULSE 96; RESP 16; TEMP 97.6; O2SAT 96
[2016-12-19] MEDS: SODIUM CHLORIDE 0.9% FLUSH 5 ML FLUSH IVF PRN (20:28)
[2016-12-20 00:24] VITALS: BP 119/63; PULSE 94; RESP 20; TEMP 98.1; O2SAT 93
[2016-12-20 04:00] VITALS: BP 155/69; PULSE 81; RESP 20; TEMP 98.2; O2SAT 94
[2016-12-20] MEDS: LEVOTHYROXINE SODIUM 100 MCG TAB PO SCH (05:36)
[2016-12-20] MEDS: ACETAMINOPHEN/HYDROcodone 325 MG/5 MG TAB PO PRN ×2 (06:15→21:49)
[2016-12-20 07:24] LABS: BICARBONATE 26.1 MEQ/L (21.0-32.0); POTASSIUM 3.1 MEQ/L (3.5-5.1)
[2016-12-20 07:47] LABS: CKMB 19.1 NG/ML (0.5-3.6)
[2016-12-20 08:06] VITALS: BP 135/65; PULSE 80; RESP 20; TEMP 96.9; O2SAT 94
[2016-12-20] MEDS: MISOPROSTOL 200 MCG TAB PO SCH ×2 (08:52→21:47)
[2016-12-20] MEDS: CALCIUM/VITAMIN D 250 MG/125 U TAB PO SCH ×2 (08:52→21:47)
[2016-12-20] MEDS: ASPIRIN EC 81 MG TABEC PO SCH (08:52)
[2016-12-20] MEDS: carBAMazepine 200 MG TAB PO SCH ×2 (08:52→21:47)
[2016-12-20] MEDS: AMIODARONE 200 MG TAB PO SCH ×2 (08:52→21:47)
[2016-12-20] MEDS: METOPROLOL TARTRATE 25 MG TAB PO SCH ×2 (08:53→21:47)
[2016-12-20] MEDS: PRIMIDONE 250 MG TAB PO SCH ×2 (08:53→21:48)
--- NOTE | 2016-12-20 09:49 | RADRPT ---
EXAM DATE/TIME: 12/20/2016 09:12 [facility] COMPARISON: CHEST PA & LAT, December 19, 2016, 9:13. INDICATIONS: Evaluate for effusion MEDICAL HISTORY: Hypertension. Cardiovascular disease. SURGICAL HISTORY: CABG Tubal ligation. ENCOUNTER: Subsequent ACUITY: 4 - 6 days PAIN SCORE: 0/10 LOCATION: Bilateral chest FINDINGS: Right lung remains clear. Sternal sires are intact. Heart is enlarged. Minimal consolidation effus ion persists in the left base, stable in the interval. CONCLUSION: Stable chest with consolidation effusion left base. Sreekanth Contreras MD FACR on December 20, 2016 at 9:41 Board Certified Radiologist. This report was verified electronically.
[2016-12-20 12:06] VITALS: BP 146/71; PULSE 78; RESP 20; TEMP 98.2; O2SAT 94
[2016-12-20 16:02] VITALS: BP_SYST 136; BP_SYST 152; BP_DIAS 68; BP_DIAS 72; PULSE 86; PULSE 88; RESP 20; RESP 22; TEMP 97.8; TEMP 98.2; O2SAT 94; O2SAT 96
[2016-12-20] MEDS ORDERED: POTASSIUM CHLORIDE 20 MEQ CONTROLLED RELEASE TAB PO ONE (18:30)
--- NOTE | 2016-12-20 18:56 | HHI.PR ---
Subjective Remarks No new complaints. Objective Vitals Vital Signs Date Time Temp Pulse Resp B/P Pulse Ox O2 Delivery O2 Flow Rate FiO2 12/20/16 16:02 98.2 86 20 152/72 94 12/20/16 12:06 98.2 78 20 146/71 94 12/20/16 08:06 96.9 80 20 135/65 94 12/20/16 04:00 98.2 81 20 155/69 94 12/20/16 00:24 98.1 94 20 119/63 93 12/19/16 20:00 97.6 96 16 185/84 96 12/19/16 12/19/16 12/20/16 15:00 23:00 07:00 Intake Total 480 ml 1203 ml 672 ml Output Total 700 ml 600 ml Balance -220 ml 1203 ml 72 ml Intake Oral 480 ml 220 ml 360 ml IV Total 983 ml 312 ml Output Urine Total 700 ml 600 ml # Voids 6 # Bowel Movements 2 0 0 Result Diagram: 12/20/16 0512 Other Results Laboratory Tests Test 12/19/16 12/20/16 05:13 05:12 Sodium Level 141 MEQ/L 145 MEQ/L Potassium Level 3.3 MEQ/L 3.1 MEQ/L Chloride Level 106 MEQ/L 110 MEQ/L Carbon Dioxide Level 25.5 MEQ/L 26.1 MEQ/L Anion Gap 10 MEQ/L 9 MEQ/L Blood Urea Nitrogen 8 MG/DL 8 MG/DL Creatinine 0.70 MG/DL 0.70 MG/DL Estimat Glomerular Filtration 83 ML/MIN 83 ML/MIN Rate Random Glucose 82 MG/DL 81 MG/DL Calcium Level 7.7 MG/DL 7.6 MG/DL Total Creatine Kinase 2494 U/L 2433 U/L Creatine Kinase MB 18.7 NG/ML 19.1 NG/ML Creatine Kinase MB % 0.7 % 0.8 % Carbamazepine (Tegretol) Level 5.9 MCG/ML Imaging Last Impressions Chest X-Ray 12/20/16 0600 Signed Impressions: Service Date/Time: Tuesday, December 20, 2016 09:12 - CONCLUSION: Stable chest with consolidation effusion left base. Sreekanth Contreras MD FACR Brain MRI 12/14/16 0000 Signed Impressions: Service Date/Time: Wednesday, December 14, 2016 17:33 - CONCLUSION: Negative MRI of the brain for an acute ischemic event. Sreekanth Contreras MD FACR Last Impressions Chest X-Ray 12/19/16 0800 Signed Impressions: Service Date/Time: December 09:13 - CONCLUSION: Qryhb-ui-rtqcmfos left effusion again noted with abnormal opacity at the left lung base. Aba Hatfield MD Brain MRI 12/14/16 0000 Signed Impressions: Service Date/Time: Wednesday, December 14, 2016 17:33 - CONCLUSION: Negative MRI of the brain for an acute ischemic event. Sreekanth Contreras MD FACR Last Impressions Chest X-Ray 12/14/16 1713 Signed Impressions: Service Date/Time: Wednesday, December 14, 2016 17:25 - CONCLUSION: Increasing consolidation left base. Sreekanth Contreras MD FACR Brain MRI 12/14/16 0000 Signed Impressions: Service Date/Time: Wednesday, December 14, 2016 17:33 - CONCLUSION: Negative MRI of the brain for an acute ischemic event. Sreekanth Contreras MD FACR Objective Remarks General: NAD, AAOx3 Chest: Diminished breath sounds at the left base Cardiac: Regular Abd: +BS, soft mild diffuse tenderness Ext: No edema A/P Problem List: (1) Seizure disorder Status: Acute Plan: - Pt is 66 y/o with previous admission d/t STEMI 11/21-11/27/16 and underwent 3V CABG 11/23/[address] Dougie Zuluaga. - Pt was sent to SNF following that admission - She was found to have a post op left pleural effusion/consolidation on CTA on 12/07/16 but no clinical proof of PNA - After leaving the SNF pt noted she had been receiving a lower dose of her Tegretol which she takes for "petit mal sz's" - She presented to the ER at [facility] on 12/14/16 with 1 day hx of tremors/shaking of her head and extremities. - She was found to have Tegretol toxicity and also noted to have rhabdo most likely due to statin - Her statin has been held - Tegretol was held following admission. Her levels returned to back to therapeutic level on 12/15 and pt was given a dose of Tegretol 300mg x one dose on 12/14 and 12/15. Tegretol level was 9.9 (12/16). Recheck of Tegretol level on 12/17 was subtherapeutic at 3.3. Tegretol 200mg po BID resumed on 12/17. Tegretol level 5.3 (12/18). - CK levels are 2565 (12/14) --> 2168 (12/15) --> 2667 (12/16) --> 3330 (12/17/) -- > 2700 (12/18) --> 2494 (12/19) --> 2433 (12/20) - IVF had been held initially due to worry of increasing her previously noted effusion but pts CK is worsened and pt had been having significant diarrhea which started on 12/16 - Pt was started on NS @ 50mL/hr on 12/16 but she had worsening CK levels and fluid rate was increased to 85mL/hr on 12/17 - CXR (12/18) --> stable chest with left pleural effusion occupies approx. 1/5 of the left hemithorax - Repeat CXR (12/19) --> [id number] left effusion again noted with abnormal opacity at the left lung base. Pleural effusion appears to be increased on CXR on 12/19, fluids decreased back down to 40mL/hr - CXR (12/20) --> Stable chest with consolidation effusion left base. - Monitor clinical status closely - Recheck BMP, CK, CK-MB in AM - Repeat CXR in AM - May need to drain this effusion with a thoracentesis, hold Plavix in anticipation for this. - Stool studies were negative for C. diff. - Diarrhea has resolved - Imodium PRN - Telemetry. 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 (4) Hypothyroid Status: Chronic Plan: - TSH 5.180/Free T4 1.38 - Cont current med Assessment and Plan Patient examined. Assessment and plan formulated with Alanna Cotton PA-C. I agree with the above. Problem Qualifiers (1) Rhabdomyolysis: Qualified Code: M62.82 - Non-traumatic rhabdomyolysis Alanna Cotton Dec 20, 2016 18:56 Ant Scott DO Dec 26, 2016 22:31
[2016-12-20 20:00] VITALS: BP 166/81; PULSE 84; RESP 20; TEMP 98; O2SAT 97
[2016-12-21 04:00] VITALS: BP 162/76; PULSE 75; RESP 20; TEMP 98.7; O2SAT 96
[2016-12-21] MEDS: LEVOTHYROXINE SODIUM 100 MCG TAB PO SCH (06:04)
[2016-12-21 07:48] LABS: BICARBONATE 25.4 MEQ/L (21.0-32.0); POTASSIUM 3.7 MEQ/L (3.5-5.1)
[2016-12-21] MEDS: SODIUM CHLORIDE 0.9% FLUSH 5 ML FLUSH IVF PRN (08:35)
[2016-12-21] MEDS: MISOPROSTOL 200 MCG TAB PO SCH ×2 (08:35→21:32)
[2016-12-21] MEDS: CALCIUM/VITAMIN D 250 MG/125 U TAB PO SCH ×2 (08:36→21:32)
[2016-12-21] MEDS: PRIMIDONE 250 MG TAB PO SCH ×2 (08:36→21:32)
[2016-12-21] MEDS: AMIODARONE 200 MG TAB PO SCH ×2 (08:36→21:32)
[2016-12-21] MEDS: ASPIRIN EC 81 MG TABEC PO SCH (08:36)
[2016-12-21] MEDS: METOPROLOL TARTRATE 25 MG TAB PO SCH ×2 (08:36→21:32)
[2016-12-21] MEDS: carBAMazepine 200 MG TAB PO SCH ×2 (08:36→21:33)
--- NOTE | 2016-12-21 10:00 | RADRPT ---
EXAM DATE/TIME: 12/21/2016 08:06 [facility] COMPARISON: CHEST PA & LAT, December 20, 2016, 9:12. INDICATIONS : Follow up left lung effusion. MEDICAL HISTORY : Hypertension. Cardiovascular disease. SURGICAL HISTORY : CABG. ENCOUNTER: Subsequent ACUITY: 1 week PAIN SCORE: 0/10 LOCATION: chest FINDINGS: AP and lateral views of the chest demonstrate a normal-sized cardiac silhouette in this patient post median sternotomy. There is a stable moderate size left basilar pleural-parenchymal opacity. No pneum othorax is visualized. Right lung is clear. CONCLUSION: Stable left pleural effusion with associated volume loss and/or consolidation. Kasi Steinberg MD on December 21, 2016 at 9:58 Board Certified Radiologist. This report was verified electronically.
[2016-12-21 12:00] VITALS: BP 161/87; PULSE 61; RESP 17; TEMP 97.9; O2SAT 98
[2016-12-21] MEDS: SODIUM CHLOR 0.9% 1000 ML INJ 1,000 ML IV SCH ×2 (12:58→14:24)
[2016-12-21 16:00] VITALS: BP 162/97; PULSE 84; RESP 17; TEMP 98.1; O2SAT 98
[2016-12-21 20:00] VITALS: BP 163/76; PULSE 84; RESP 18; TEMP 97.9; O2SAT 95
--- NOTE | 2016-12-21 20:39 | HHI.PR ---
Subjective Remarks No new complaints. Objective Vitals Vital Signs Date Time Temp Pulse Resp B/P Pulse Ox O2 Delivery O2 Flow Rate FiO2 12/21/16 16:00 98.1 84 17 162/97 98 12/21/16 12:00 97.9 61 17 161/87 98 12/21/16 04:00 98.7 75 20 162/76 96 12/20/16 12/20/16 12/21/16 15:00 23:00 07:00 Intake Total 480 ml 360 ml 720 ml Output Total 1400 ml 450 ml Balance -920 ml -90 ml 720 ml Intake Oral 480 ml 360 ml 720 ml Output Urine Total 1400 ml 450 ml # Voids 4 # Bowel Movements 0 0 1 Result Diagram: 12/21/16 0650 Imaging Last Impressions Chest X-Ray 12/20/16 0600 Signed Impressions: Service Date/Time: Tuesday, December 20, 2016 09:12 - CONCLUSION: Stable chest with consolidation effusion left base. Sreekanth Contreras MD FACR Brain MRI 12/14/16 0000 Signed Impressions: Service Date/Time: Wednesday, December 14, 2016 17:33 - CONCLUSION: Negative MRI of the brain for an acute ischemic event. Sreekanth Contreras MD FACR Last Impressions Chest X-Ray 12/19/16 0800 Signed Impressions: Service Date/Time: December 09:13 - CONCLUSION: Xawvv-gh-keeitoxd left effusion again noted with abnormal opacity at the left lung base. Aba Hatfield MD Brain MRI 12/14/16 0000 Signed Impressions: Service Date/Time: Wednesday, December 14, 2016 17:33 - CONCLUSION: Negative MRI of the brain for an acute ischemic event. Sreekanth Contreras MD FACR Last Impressions Chest X-Ray 12/14/16 1713 Signed Impressions: Service Date/Time: Wednesday, December 14, 2016 17:25 - CONCLUSION: Increasing consolidation left base. Sreekanth Contreras MD FACR Brain MRI 12/14/16 0000 Signed Impressions: Service Date/Time: Wednesday, December 14, 2016 17:33 - CONCLUSION: Negative MRI of the brain for an acute ischemic event. Sreekanth Contreras MD FACR Objective Remarks General: NAD, AAOx3 Chest: Diminished breath sounds at the left base Cardiac: Regular Abd: +BS, soft mild diffuse tenderness Ext: No edema A/P Problem List: (1) Seizure disorder Status: Acute Plan: - Pt is 66 y/o with previous admission d/t STEMI 11/21-11/27/16 and underwent 3V CABG 11/23/[address] Dougie Zuluaga. - Pt was sent to [facility] following that admission - She was found to have a post op left pleural effusion/consolidation on CTA on 12/07/16 but no clinical proof of PNA - After leaving the SNF pt noted she had been receiving a lower dose of her Tegretol which she takes for "petit mal sz's" - She presented to the ER at [facility] [place] [facility] on 12/14/16 with 1 day hx of tremors/shaking of her head and extremities. - She was found to have Tegretol toxicity and also noted to have rhabdo most likely due to statin - Her statin has been held - Tegretol was held following admission. Her levels returned to back to therapeutic level on 12/15 and pt was given a dose of Tegretol 300mg x one dose on 12/14 and 12/15. Tegretol level was 9.9 (12/16). Recheck of Tegretol level on 12/17 was subtherapeutic at 3.3. Tegretol 200mg po BID resumed on 12/17. Tegretol level 5.3 (12/18). - CK levels are 2565 (12/14) --> 2168 (12/15) --> 2667 (12/16) --> 3330 (12/17/) -- > 2700 (12/18) --> 2494 (12/19) --> 2433 (12/20) --> 2244 (12/21) - IVF had been held initially due to worry of increasing her previously noted effusion but pts CK is worsened and pt had been having significant diarrhea which started on 12/16 - increase IVF rate to 75ml/hour, observe - CXR (12/18) --> stable chest with left pleural effusion occupies approx. 1/5 of the left hemithorax - Repeat CXR (12/19) --> Zrjyv-id-rqksihiv left effusion again noted with abnormal opacity at the left lung base. Pleural effusion appears to be increased on CXR on 12/19, fluids decreased back down to 40mL/hr - CXR (12/21) --> stable left pleural effusion - Monitor clinical status closely - Recheck BMP, CK, CK-MB in AM - Repeat CXR in AM - May need to drain this effusion with a thoracentesis, hold Plavix in anticipation for this. - Stool studies were negative for C. diff. - Diarrhea has resolved - Imodium PRN - Telemetry. 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 (4) Hypothyroid Status: Chronic Plan: - TSH 5.180/Free T4 1.38 - Cont current med Problem Qualifiers (1) Rhabdomyolysis: Qualified Code: M62.82 - Non-traumatic rhabdomyolysis Ant Scott DO Dec 21, 2016 20:39
[2016-12-21] MEDS ORDERED: ENALAPRILAT 1.25 MG/ML VIAL IV PRN (20:45)
[2016-12-21] MEDS ORDERED: cloNIDine HCL 0.2 MG TAB PO PRN (20:45)
[2016-12-21] MEDS: LOPERAMIDE HCL 2 MG CAP PO PRN (21:32)
[2016-12-21] MEDS: ACETAMINOPHEN/HYDROcodone 325 MG/5 MG TAB PO PRN (21:46)
[2016-12-21 23:17] LABS: CKMB 13.8 NG/ML (0.5-3.6)
[2016-12-22] VITALS (7 sets, daily range): BP systolic 128–190; BP diastolic 63–94; PULSE 52–94; RESP 18–20; TEMP 97.8–99; O2SAT 94–97
[2016-12-22] MEDS: LEVOTHYROXINE SODIUM 100 MCG TAB PO SCH (05:56)
[2016-12-22] MEDS: SODIUM CHLOR 0.9% 1000 ML INJ 1,000 ML IV SCH ×2 (06:01→09:04)
[2016-12-22] MEDS: PRIMIDONE 250 MG TAB PO SCH ×2 (09:01→20:37)
[2016-12-22] MEDS: AMIODARONE 200 MG TAB PO SCH ×2 (09:01→20:38)
[2016-12-22] MEDS: carBAMazepine 200 MG TAB PO SCH ×2 (09:01→20:37)
[2016-12-22] MEDS: ASPIRIN EC 81 MG TABEC PO SCH (09:01)
[2016-12-22] MEDS: MISOPROSTOL 200 MCG TAB PO SCH ×2 (09:01→20:37)
[2016-12-22] MEDS: CALCIUM/VITAMIN D 250 MG/125 U TAB PO SCH ×2 (09:01→20:37)
[2016-12-22] MEDS: METOPROLOL TARTRATE 25 MG TAB PO SCH ×2 (09:01→20:37)
--- NOTE | 2016-12-22 09:03 | RADRPT ---
EXAM DATE/TIME: 12/22/2016 08:46 [facility] COMPARISON: CHEST PA & LAT, December 21, 2016, 8:06. INDICATIONS : Pleural effusion. MEDICAL HISTORY : Hypertension. Cardiovascular disease. SURGICAL HISTORY : CABG. ENCOUNTER: Subsequent ACUITY: 1 week PAIN SCORE: 0/10 LOCATION: Bilateral chest FINDINGS: Frontal and lateral views of the chest demonstrate normal-sized cardiac silhouette in this patient po st median sternotomy. There is a stable small left basilar pleural-parenchymal opacity and linear opa city in the left mid to upper lung zone. No pneumothorax is visualized. Right lung is clear. Bones de monstrate no acute finding. CONCLUSION: Stable left pleural effusion with associated compressive atelectasis and/or consolidation. Kasi Steinberg MD on December 22, 2016 at 9:00 Board Certified Radiologist. This report was verified electronically.
[2016-12-22 10:09] LABS: BICARBONATE 25.3 MEQ/L (21.0-32.0); MAGNESIUM 1.5 MG/DL (1.5-2.5); POTASSIUM 3.8 MEQ/L (3.5-5.1)
--- NOTE | 2016-12-22 15:50 | HHI.PR ---
Subjective Remarks No new complaints. Objective Vitals Vital Signs Date Time Temp Pulse Resp B/P Pulse Ox O2 Delivery O2 Flow Rate FiO2 12/22/16 12:11 98.4 79 18 130/72 94 12/22/16 08:02 97.9 85 18 140/80 97 12/22/16 04:00 99.0 78 18 147/70 94 12/22/16 00:19 98.0 77 18 128/63 95 12/21/16 20:00 97.9 84 18 163/76 95 12/21/16 16:00 98.1 84 17 162/97 98 12/21/16 12/21/16 12/22/16 15:00 23:00 07:00 Intake Total 1820 ml 688 ml 480 ml Output Total 1000 ml Balance 1820 ml 688 ml -520 ml Intake Oral 240 ml 360 ml 480 ml IV Total 1580 ml 328 ml Output Urine Total 1000 ml # Voids 4 2 # Bowel Movements 0 Result Diagram: 12/22/16 0921 Imaging Last Impressions Chest X-Ray 12/20/16 0600 Signed Impressions: Service Date/Time: Tuesday, December 20, 2016 09:12 - CONCLUSION: Stable chest with consolidation effusion left base. Sreekanth Contreras MD FACR Brain MRI 12/14/16 0000 Signed Impressions: Service Date/Time: Wednesday, December 14, 2016 17:33 - CONCLUSION: Negative MRI of the brain for an acute ischemic event. Sreekanth Contreras MD FACR Last Impressions Chest X-Ray 12/19/16 0800 Signed Impressions: Service Date/Time: December 09:13 - CONCLUSION: Legam-hp-nznnljfv left effusion again noted with abnormal opacity at the left lung base. Aba Hatfield MD Brain MRI 12/14/16 0000 Signed Impressions: Service Date/Time: Wednesday, December 14, 2016 17:33 - CONCLUSION: Negative MRI of the brain for an acute ischemic event. Sreekanth Contreras MD FACR Last Impressions Chest X-Ray 12/14/16 1713 Signed Impressions: Service Date/Time: Wednesday, December 14, 2016 17:25 - CONCLUSION: Increasing consolidation left base. Sreekanth Contreras MD FACR Brain MRI 12/14/16 0000 Signed Impressions: Service Date/Time: Wednesday, December 14, 2016 17:33 - CONCLUSION: Negative MRI of the brain for an acute ischemic event. Sreekanth Contreras MD FACR Objective Remarks General: NAD, AAOx3 Chest: Diminished breath sounds at the left base Cardiac: Regular Abd: +BS, soft mild diffuse tenderness Ext: No edema A/P Problem List: (1) Seizure disorder Status: Acute Plan: - Pt is 66 y/o with previous admission d/t STEMI 11/21-11/27/16 and underwent 3V CABG 11/23/[address] Dougie Zuluaga. - Pt was sent to [facility] following that admission - She was found to have a post op left pleural effusion/consolidation on CTA on 12/07/16 but no clinical proof of PNA - After leaving the SNF pt noted she had been receiving a lower dose of her Tegretol which she takes for "petit mal sz's" - She presented to the ER at [facility] on 12/14/16 with 1 day hx of tremors/shaking of her head and extremities. - She was found to have Tegretol toxicity and also noted to have rhabdo most likely due to statin - Her statin has been held - Tegretol was held following admission. Her levels returned to back to therapeutic level on 12/15 and pt was given a dose of Tegretol 300mg x one dose on 12/14 and 12/15. Tegretol level was 9.9 (12/16). Recheck of Tegretol level on 12/17 was subtherapeutic at 3.3. Tegretol 200mg po BID resumed on 12/17. Tegretol level 5.3 (12/18). - CK levels are 2565 (12/14) --> 2168 (12/15) --> 2667 (12/16) --> 3330 (12/17/) -- > 2700 (12/18) --> 2494 (12/19) --> 2433 (12/20) --> 2244 (12/21) - IVF had been held initially due to worry of increasing her previously noted effusion but pts CK is worsened and pt had been having significant diarrhea which started on 12/16 - increase IVF rate to 75ml/hour, observe - CXR (12/18) --> stable chest with left pleural effusion occupies approx. 1/5 of the left hemithorax - Repeat CXR (12/19) --> Kuyls-gf-ysgfbbdv left effusion again noted with abnormal opacity at the left lung base. Pleural effusion appears to be increased on CXR on 12/19, fluids decreased back down to 40mL/hr - CXR (12/21) --> stable left pleural effusion - Monitor clinical status closely - CXR (12/22/16) --> stable left pleural effusion - May need to drain this effusion with a thoracentesis, hold Plavix in anticipation for this. - Stool studies were negative for C. diff. - Diarrhea has resolved - Imodium PRN - Telemetry. 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 (4) Hypothyroid Status: Chronic Plan: - TSH 5.180/Free T4 1.38 - Cont current med Problem Qualifiers (1) Rhabdomyolysis: Qualified Code: M62.82 - Non-traumatic rhabdomyolysis Ant Scott DO Dec 22, 2016 15:50
[2016-12-22] MEDS: ACETAMINOPHEN/HYDROcodone 325 MG/5 MG TAB PO PRN (18:39)
[2016-12-23] MEDS: LEVOTHYROXINE SODIUM 100 MCG TAB PO SCH (05:04)
[2016-12-23 05:06] VITALS: BP 165/95; PULSE 79; RESP 18; TEMP 97.8; O2SAT 97
[2016-12-23 08:00] VITALS: BP 125/71; PULSE 79; RESP 20; TEMP 97.7; O2SAT 93
[2016-12-23 09:02] LABS: BICARBONATE 27.1 MEQ/L (21.0-32.0); POTASSIUM 3.6 MEQ/L (3.5-5.1)
[2016-12-23 09:26] LABS: CKMB 4.8 NG/ML (0.5-3.6)
[2016-12-23] MEDS: MISOPROSTOL 200 MCG TAB PO SCH (10:20)
[2016-12-23] MEDS: PRIMIDONE 250 MG TAB PO SCH (10:21)
[2016-12-23] MEDS: AMIODARONE 200 MG TAB PO SCH (10:21)
[2016-12-23] MEDS: carBAMazepine 200 MG TAB PO SCH (10:21)
[2016-12-23] MEDS: METOPROLOL TARTRATE 25 MG TAB PO SCH (10:21)
[2016-12-23] MEDS: CALCIUM/VITAMIN D 250 MG/125 U TAB PO SCH (10:21)
[2016-12-23] MEDS: ASPIRIN EC 81 MG TABEC PO SCH (10:21)
[2016-12-23 12:00] VITALS: BP 137/69; PULSE 65; RESP 20; TEMP 97.8; O2SAT 94
--- NOTE | 2016-12-23 12:23 | HHI.PR ---
Subjective Remarks wants to go home denies sob refused thoracentesis Objective Vitals heart reg lung diminished left lung base abd s/nt ext no edema Vital Signs Date Time Temp Pulse Resp B/P Pulse Ox O2 Delivery O2 Flow Rate FiO2 12/23/16 08:00 97.7 79 20 125/71 93 12/23/16 05:06 97.8 79 18 165/95 97 12/22/16 23:33 52 20 148/78 Automatic Cuff 12/22/16 20:00 97.8 94 18 190/94 95 12/22/16 16:28 98.3 80 19 160/90 95 12/22/16 12/22/16 12/23/16 15:00 23:00 07:00 Intake Total 600 ml Output Total 600 ml Balance 0 ml Intake Oral 600 ml Output Urine Total 600 ml # Bowel Movements 2 Result Diagram: 12/23/16 0715 Imaging Last Impressions Chest X-Ray 12/20/16 0600 Signed Impressions: Service Date/Time: Tuesday, December 20, 2016 09:12 - CONCLUSION: Stable chest with consolidation effusion left base. Sreekanth Contreras MD FACR Brain MRI 12/14/16 0000 Signed Impressions: Service Date/Time: Wednesday, December 14, 2016 17:33 - CONCLUSION: Negative MRI of the brain for an acute ischemic event. Sreekanth Contreras MD FACR Last Impressions Chest X-Ray 12/19/16 0800 Signed Impressions: Service Date/Time: December 09:13 - CONCLUSION: Evfud-tb-hgjxrybl left effusion again noted with abnormal opacity at the left lung base. Aba Hatfield MD Brain MRI 12/14/16 0000 Signed Impressions: Service Date/Time: Wednesday, December 14, 2016 17:33 - CONCLUSION: Negative MRI of the brain for an acute ischemic event. Sreekanth Contreras MD FACR Last Impressions Chest X-Ray 12/14/16 1713 Signed Impressions: Service Date/Time: Wednesday, December 14, 2016 17:25 - CONCLUSION: Increasing consolidation left base. Sreekanth Contreras MD FACR Brain MRI 12/14/16 0000 Signed Impressions: Service Date/Time: Wednesday, December 14, 2016 17:33 - CONCLUSION: Negative MRI of the brain for an acute ischemic event. Sreekanth Contreras MD FACR A/P Problem List: (1) Seizure disorder Status: Acute Plan: - Pt is 66 y/o with previous admission d/t STEMI 11/21-11/27/16 and underwent 3V CABG 11/23/[address] Dougie Zuluaga. - Pt was sent to [facility] following that admission - She was found to have a post op left pleural effusion/consolidation on CTA on 12/07/16 but no clinical proof of PNA - After leaving the SNF pt noted she had been receiving a lower dose of her Tegretol which she takes for "petit mal sz's" - She presented to the ER at [facility] [place] on 12/14/16 with 1 day hx of tremors/shaking of her head and extremities. - She was found to have Tegretol toxicity and also noted to have rhabdo most likely due to statin - Her statin has been held - Tegretol was held following admission. Her levels returned to back to therapeutic level on 12/15 and pt was given a dose of Tegretol 300mg x one dose on 12/14 and 12/15. Tegretol level was 9.9 (12/16). Recheck of Tegretol level on 12/17 was subtherapeutic at 3.3. Tegretol 200mg po BID resumed on 12/17. Tegretol level 5.3 (12/18). - CK levels are 2565 (12/14) --> 2168 (12/15) --> 2667 (12/16) --> 3330 (12/17/) -- > 2700 (12/18) --> 2494 (12/19) --> 2433 (12/20) --> 2244 (12/21) - IVF had been held initially due to worry of increasing her previously noted effusion but pts CK is worsened and pt had been having significant diarrhea which started on 12/16 - increase IVF rate to 75ml/hour, observe - CXR (12/18) --> stable chest with left pleural effusion occupies approx. 1/5 of the left hemithorax - Repeat CXR (12/19) --> Mqbyi-za-jyobaclm left effusion again noted with abnormal opacity at the left lung base. Pleural effusion appears to be increased on CXR on 1/19, fluids decreased back down to 40mL/hr - CXR (12/21) --> stable left pleural effusion - Monitor clinical status closely - CXR (12/22/16) --> stable left pleural effusion - May need to drain this effusion with a thoracentesis, hold Plavix in anticipation for this. - Stool studies were negative for C. diff. - Diarrhea has resolved - Imodium PRN - Telemetry. - DVT prophylaxis today pt wants to go home. ck down. no statin at dc. d/c ivf. she is not symptomatic from her effusion and not interested at this time in thoracentesis. call her neurology office and she will f/u in 2 days for tegretol levels...we agreed to resume the dose she has been on since 2014.....400mg, 200mg, 300mg ..... addendum: discussed with dr sandoval. she feels amiodarone and tegretol interacted. lower tegretol to 200mg po bid and f/u 2 days. 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 (4) Hypothyroid Status: Chronic Plan: - TSH 5.180/Free T4 1.38 - Cont current med Problem Qualifiers (1) Rhabdomyolysis: Qualified Code: M62.82 - Non-traumatic rhabdomyolysis Colin Castelan MD Dec 23, 2016 12:23
--- NOTE | 2016-12-23 12:24 | HHI.DCPOC ---
Discharge Care Plan Diagnosis: (1) Seizure disorder (2) Rhabdomyolysis (3) Pleural effusion (4) S/P CABG x 3 Goals to Promote Your Health * To prevent worsening of your condition and complications * To maintain your health at the optimal level Directions to Meet Your Goals Take your medications as prescribed Follow your dietary instruction Follow activity as directed Keep your appointments as scheduled Take your immunizations and boosters as scheduled If your symptoms worsen call your PCP, if no PCP go to Urgent Care Center or Emergency Room Smoking is Dangerous to Your Health. Avoid second hand smoke Call the 24-hour hour crisis hotline for domestic abuse at Colin Castelan MD Dec 23, 2016 12:24
[2016-12-23] MEDS ORDERED: TEGR200T PO ×2 (12:27→13:33)
--- NOTE | 2016-12-29 15:31 | HHI.DS ---
Discharge Summary Admission Date Dec 14, 2016 at 19:40 Discharge Date: Dec 23, 2016 Admitting Diagnosis rhabdomyolosis; tremors (1) Seizure disorder Diagnosis: Principal (2) Rhabdomyolysis Diagnosis: Principal (3) S/P CABG x 3 Diagnosis: Secondary (4) Hypothyroid Diagnosis: Secondary Brief History Pt is 66 yo female with recent 3v cabg and petit mal sz's. She was discharged to snf after bypass and returned once for left chest pain probably related to effusion/ consolidation. She was d/c'ed home 3d ago from snf and says someone lowered her tegretol dose. Since yesterday she has had head/facial tremors and tremors of arms and less so of her legs. no f/c, no n/v, no cough or sob. She had been ambulating with a walker. Pt does say similar sx's occured back when she and her neurologist were titrating her meds for petit mal sz's. she also had some blurry vision currently resolved. Hospital Course - Pt is 66 y/o with previous admission d/t STEMI 11/21-11/27/16 and underwent 3V CABG 11/23/[address] Dougie Zuluaga. - Pt was sent to SNF following that admission - She was found to have a post op left pleural effusion/consolidation on CTA on 12/07/16 but no clinical proof of PNA - After leaving the SNF pt noted she had been receiving a lower dose of her Tegretol which she takes for "petit mal sz's" - She presented to the ER at [facility] on 12/14/16 with 1 day hx of tremors/shaking of her head and extremities. - She was found to have Tegretol toxicity and also noted to have rhabdo most likely due to statin - Her statin has been held - Tegretol was held following admission. Her levels returned to back to therapeutic level - Tegretol 200mg po BID resumed on 12/17. Tegretol level 5.3 (12/18). - IVF had been held initially due to worry of increasing her previously noted effusion but pts CK is worsened and pt had been having significant diarrhea which started on 12/16 - CXR (12/18) --> stable chest with left pleural effusion occupies approx. 1/5 of the left hemithorax - Repeat CXR (12/19) --> [id number] left effusion again noted with abnormal opacity at the left lung base. Pleural effusion appears to be increased on CXR on 12/19, fluids decreased back down - CXR (12/21) --> stable left pleural effusion - CXR (12/22/16) --> stable left pleural effusion - drainage of the fluid was discussed but because she was asx pt not interested in thoracentesis at this time. - Stool studies were negative for C. diff. - Diarrhea has resolved -discussed with dr sandoval. she feels amiodarone and tegretol interacted. lower tegretol to 200mg po bid and f/u 2 days. Pt Condition on Discharge: Stable Discharge Disposition: Discharge Home Discharge Instructions DIET: Follow Instructions for: Heart Healthy Diet Activities you can perform: Regular-No Restrictions Follow up Referrals: Neurology - 12/25/16 with Ana Sandoval M.d. PCP Follow-up - [address] Isaacs Changed Medications: Carbamazepine (Tegretol) 200 Mg Tab 200 MG PO BID Seizure Control #0 Ref 0 TAB (Changed from: DIRECTED; 90; Removed Instructions) Continued Medications: Alendronate (Alendronate) 70 Mg Tab 70 MG PO Q7D Osteporosis Treatment #4 Ref 0 TAB Amiodarone (Amiodarone) 200 Mg Tab 200 MG PO Q12HR Regulate Heart Beat #28 Ref [address] (Aspirin 81) 81 Mg Tabdr 81 MG PO DAILY Ref 0 TAB Calcium Carbonate-Cholecalciferol (Calcium 600 + D) 600-200 Mg-Unit Tab 1 TAB PO BID TAB Clopidogrel (Plavix) 75 Mg Tab 75 MG PO DAILY Blood Clot Prevention #30 Ref [address] (Diclofenac Sodium DR) 50 Mg Tabdr 50 MG PO BID #60 Ref 0 TAB Diphenhydramine HCl (Benadryl Allergy) 25 Mg Cap 25 MG PO Q6HR PRN ITCHING Glucosamine (Glucosamine) 1,500 Mg Tab 1500 MG PO DAILY Herbal Supplements Ref 0 TAB Hydrocodone-Acetaminophen (Hydrocodone-Acetaminophen) 5-325 mg Tab 1 TAB PO Q3H PRN PAIN SCALE 3 TO 5 #30 Ref 0 TAB Levothyroxine (Levothyroxine) 100 Mcg Tab 100 MCG PO DAILY Thyroid #30 Ref 0 TAB Metoprolol Tartrate (Metoprolol Tartrate) 25 Mg Tab 12.5 MG PO BID Blood Pressure Management #60 Ref 3 TAB Misoprostol (Misoprostol) 200 Mcg Tab 200 MCG PO BID Ref 0 TAB [place]-3 Fatty Acids (Fish Oil) 500 Mg Cap 500 MG PO DAILY Heart Health Primidone (Primidone) 250 Mg Tab 250 MG PO BID Control Seizures #90 Ref 0 TAB Pyridoxine (Vitamin B-6) 100 Mg Tab 100 MG PO DAILY Nutritional Supplement #30 Ref 0 TAB Triamterene-Hydrochlorothiazide (Triamterene-Hydrochlorothiazide) 37.5-25 Mg Tab 1 TAB PO DAILY #30 Ref 0 TAB Vitamin E (Vitamin E) 100 Unit Cap 100 UNITS PO DAILY Nutritional Supplement Ref 0 CAP Discontinued Medications: Atorvastatin (Lipitor) 40 Mg Tab 80 MG PO HS Cholesterol Management #30 Ref 3 TAB Colin Castelan MD Dec 29, 2016 15:31
== END 2016-12-23 14:07 | disposition home or self-care (01) | DRG 91 ==
LOC: NEPE 16:57 → NEDA 19:40 → N04B 22:35 → N04A 12-20 17:10
PROVIDERS: ADMIT Hospitalist; ATTEND Hospitalist
DX: G25.1 Drug-induced tremor (principal); I21.4 Non-ST elevation (NSTEMI) myocardial infarction; J90 Pleural effusion, not elsewhere classified; M62.82 Rhabdomyolysis; G40.409 Other generalized epilepsy and epileptic syndromes, not intractable, without status epilepticus; T42.1X5A Adverse effect of iminostilbenes, initial encounter; Y92.9 Unspecified place or not applicable; N18.3 Chronic kidney disease, stage 3 (moderate); H53.2 Diplopia; I12.9 Hypertensive chronic kidney disease with stage 1 through stage 4 chronic kidney disease, or unspecified chronic kidney disease; I25.10 Atherosclerotic heart disease of native coronary artery without angina pectoris; Z95.1 Presence of aortocoronary bypass graft; E03.9 Hypothyroidism, unspecified; E78.00 Pure hypercholesterolemia, unspecified; W19.XXXA Unspecified fall, initial encounter; E78.5 Hyperlipidemia, unspecified; K21.9 Gastro-esophageal reflux disease without esophagitis; Z87.891 Personal history of nicotine dependence; R19.7 Diarrhea, unspecified; Z53.29 Procedure and treatment not carried out because of patient's decision for other reasons
CPT/HCPCS: 70551; 71010; 71020; 80048; 80053; 80156; 81001; 82550; 82552; 83735; 84439; 84443; 84484; 85025; 85610; 85730; 87040; 87493; 93005; J0456; J0692; J7030; J7050

== ENCOUNTER 2018-01-04 19:03 | Emergency (ER) | payer MEDICARE ==
[~2018-01-04] VITALS: Ht 147.3 cm; Wt 55.0 kg
[~2018-01-04 19:03] MED LIST changes: -ASPI-110 PO; +ASPI1TAB57 PO; -LIPI40TA PO; -PANT40TA3 PO
[2018-01-04 19:04] VITALS: BP 200/90; PULSE 96; RESP 18; TEMP 97.9; O2SAT 96
--- NOTE | 2018-01-04 19:20 | PD ---
HPI Chief Complaint: Injury Time Seen by Provider: 19:15 Travel History International Travel<30 days: No Contact w/Intl Traveler<30days: No Traveled to known affect area: No History of Present Illness HPI The patient is a 67 year old female who presents to the [facility] emergency department with a history of tripping over her dog at 6PM. She fell onto her carpet and hit her head and left shoulder on her concrete block wall. She also landed on her extended right wrist in order to try to catch herself. She denies any LOC. She denies any neck pain, numbness or tingling, or weakness to her arms or legs. She denies having any chest pain, chest pressure, or shortness of breath. On review of systems otherwise, the patient denies having any recent fevers, cough, congestion, neck pain, abdominal pain, vomiting, diarrhea, urinary symptoms, or other neurologic symptoms. PFSH Past Medical History Narrative Medical The patient's past medical history is significant for CAD status post coronary artery bypass grafting of 3 vessels in 2016, history of hypertension, hyperlipidemia, seizure disorder, hypothyroid disorder. Hx Anticoagulant Therapy: Yes (low dose aspirin every other day, Plavix every other day) Asthma: No Anxiety: No Depression: No Heart Rhythm Problems: No Cancer: No Cardiac Catheterization: Yes Cardiovascular Problems: Yes (htn) High Cholesterol: Yes Chemotherapy: No Chest Pain: No Congestive Heart Failure: No COPD: No Diabetes: No Diminished Hearing: No Glaucoma: No Hepatitis: No Hiatal Hernia: No Hypertension: Yes Medical other: Yes (EPILEPSY) Musculoskeletal: No Neurologic: No Psychiatric: No Reproductive: No Respiratory: No Radiation Therapy: No Seizures: Yes Sleep Apnea: No Thyroid Disease: Yes Tetanus Vaccination: > 5 Years Influenza Vaccination: Yes Menopausal: Yes Tubal Ligation: Yes Past Surgical History Narrative Surgical The patient's past surgical history is significant for bilateral tubal ligation , coronary artery bypass grafting 3 vessels in 2016. 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 Reported Meds & Prescriptions Reported Meds & Active Scripts Active Hydrocodone-Acetaminophen 5-300 Mg Tab 1 Tab PO Q6H PRN Tegretol (Carbamazepine) 200 Mg Tab 200 Mg PO BID Hydrocodone-Acetaminophen 5-325 mg Tab 1 Tab PO Q3H PRN Metoprolol Tartrate 25 Mg Tab 12.5 Mg PO BID Plavix (Clopidogrel Bisulfate) 75 Mg Tab 75 Mg PO DAILY Amiodarone (Amiodarone HCl) 200 Mg Tab 200 Mg PO Q12HR Reported Benadryl Allergy (Diphenhydramine HCl) 25 Mg Cap 25 Mg PO Q6HR PRN Fish Oil ([place]-3 Fatty Acids) 500 Mg Cap 500 Mg PO DAILY Vitamin B-6 (Pyridoxine HCl) 100 Mg Tab 100 Mg PO DAILY Aspirin 81 (Aspirin) 81 Mg Tabdr 81 Mg PO DAILY Vitamin E 100 Unit Cap 100 Units PO DAILY Glucosamine 1,500 Mg Tab 1,500 Mg PO DAILY Calcium 600 + D (Calcium Carbonate-Cholecalciferol) 600-200 Mg-Unit Tab 1 Tab PO BID Alendronate (Alendronate Sodium) 70 Mg Tab 70 Mg PO Q7D Levothyroxine (Levothyroxine Sodium) 100 Mcg Tab 100 Mcg PO DAILY Triamterene-Hydrochlorothiazide 37.5-25 Mg Tab 1 Tab PO DAILY Diclofenac Sodium DR (Diclofenac Sodium) 50 Mg Tabdr 50 Mg PO BID Misoprostol 200 Mcg Tab 200 Mcg PO BID Primidone 250 Mg Tab 250 Mg PO BID Review of Systems Except as stated in HPI: all other systems reviewed are Neg General / Constitutional: No: Fever Eyes: No: Visual changes HENT: Positive: Headaches, Neck Pain Cardiovascular: No: Chest Pain or Discomfort Respiratory: No: Shortness of Breath Gastrointestinal: No: Nausea, Vomiting, Diarrhea, Abdominal Pain Genitourinary: No: Dysuria Musculoskeletal: Positive: Myalgias, Arthralgias, Pain Skin: No Rash Neurologic: Positive: Headache, No: Weakness, Focal Abnormalities, Change in Mentation, Slurred Speech, Sensory Disturbance Psychiatric: No: Depression Endocrine: No: Polydipsia Hematologic/Lymphatic: No: Easy Bruising Physical Exam Narrative General: The patient is a well-developed well-nourished female in no acute distress. Head and Neck exam: Head is normocephalic, without any visible evidence of trauma, no hematoma, ecchymosis, or erythema, however the patient reports tenderness on palpation along the left occipital area, left side of the neck in the cervical paraspinal musculature. Eyes: EOMI, pupils are equal round and reactive to light. Nose: Midline septum with pink mucous membranes Mouth: Dentition unremarkable. Moist mucus membranes. Posterior oropharynx is not erythematous. No tonsillar hypertrophy. Uvula midline. Airway patent. Neck: No palpable lymphadenopathy. No nuchal rigidity. No thyromegaly. No spinous process tenderness to palpation. No step-off or crepitus. No erythema or ecchymosis. Cardiovascular: Regular rate and rhythm without murmurs, gallops, or rubs. Lungs: Clear to auscultation bilaterally. No wheezes, rhonchi, or rales. Abdomen: Soft, without tenderness to palpation in all 4 quadrants of the abdomen. No guarding, rebound, or rigidity. Normal bowel sounds are audible. No tenderness on palpation of McBurney's point. Extremities: No clubbing, cyanosis, or edema. 2+ pulses in all 4 extremities. The area of interest is the left shoulder and right wrist. The patient has tenderness on palpation along the deltoid musculature, proximal humerus without any crepitus or step-off. No loss of range of motion. No ecchymosis visible. No loss of fullness in the glenoid fossa. The other area of interest is the right wrist. The patient on examination is developing some ecchymosis along the distal right radius, however there is no other deformity or swelling. The patient reports tenderness near the area of ecchymosis. There is no step-off or crepitus. She has full range of motion. No other pain of her extremities on exam. Back: No spinous process tenderness to palpation. No costovertebral angle tenderness to palpation. Neurologic Exam: Cranial nerves 2-12 were intact on exam. Strength is 5/5 in all 4 extremities. No sensory deficits noted. Skin Exam: No rash noted. Intact skin that is warm and dry. Data Data Last Documented VS Vital Signs Date Time Temp Pulse Resp B/P (MAP) Pulse Ox O2 Delivery O2 Flow Rate FiO2 01/04/18 20:26 16 99 Room Air 01/04/18 20:26 71 01/04/18 19:04 97.9 Orders Orders Electrocardiogram (01/04/18 19:25) Complete Blood Count With Diff (01/04/18 19:25) Basic Metabolic Panel (Bmp) (01/04/18 19:25) Prothrombin Time / Inr (Pt) (01/04/18 19:25) Act Partial Throm Time (Ptt) (01/04/18 19:25) Carbamazepine (Tegretol) (01/04/18 19:25) Chest, Single Ap (01/04/18 19:25) Ct Brain W/O Iv Contrast(Rout) (01/04/18 19:25) Iv Access Insert/Monitor (01/04/18 19:25) Ecg Monitoring (01/04/18 19:25) Oximetry (01/04/18 19:25) Wrist, Complete ([id number]) (01/04/18 ) Shoulder, Complete (>2vws) (01/04/18 ) Ct Cerv Spine W/O Contrast (01/04/18 ) Morphine Inj (Morphine Inj) (01/04/18 20:15) Ondansetron Inj (Zofran Inj) (01/04/18 20:15) Sodium Chlor 0.9% 1000 Ml Inj (Ns 1000 M (01/04/18 20:15) Ketorolac Inj (Toradol Inj) (01/04/18 21:00) Ice/Cold Pack (01/04/18 21:07) Splint Or Brace Apply/Monitor (01/04/18 21:07) Ed Discharge Order (01/04/18 21:30) Labs Laboratory Tests Test 01/04/18 20:20 01/04/18 20:30 Prothrombin Time 11.8 SEC Prothromb Time International Ratio 1.2 RATIO Activated Partial Thromboplast Time 24.3 SEC Blood Urea Nitrogen 26 MG/DL Creatinine 1.03 MG/DL Random Glucose 96 MG/DL Calcium Level 9.3 MG/DL Sodium Level 134 MEQ/L Potassium Level 3.7 MEQ/L Chloride Level 98 MEQ/L Carbon Dioxide Level 33.0 MEQ/L Anion Gap 3 MEQ/L Estimat Glomerular Filtration Rate 53 ML/MIN Carbamazepine (Tegretol) Level 12.3 MCG/ML White Blood Count 6.0 TH/MM3 Red Blood Count 4.16 MIL/MM3 Hemoglobin 13.7 GM/DL Hematocrit 39.4 % Mean Corpuscular Volume 94.5 FL Mean Corpuscular Hemoglobin 33.0 PG Mean Corpuscular Hemoglobin Concent 34.9 % Red Cell Distribution Width 12.7 % Platelet Count 381 TH/MM3 Mean Platelet Volume 7.4 FL Neutrophils (%) (Auto) 55.1 % Lymphocytes (%) (Auto) 34.2 % Monocytes (%) (Auto) 8.0 % Eosinophils (%) (Auto) 1.6 % Basophils (%) (Auto) 1.1 % Neutrophils # (Auto) 3.3 TH/MM3 Lymphocytes # (Auto) 2.0 TH/MM3 Monocytes # (Auto) 0.5 TH/MM3 Eosinophils # (Auto) 0.1 TH/MM3 Basophils # (Auto) 0.1 TH/MM3 CBC Comment DIFF FINAL Differential Comment MDM Medical Decision Making Medical Screen Exam Complete: Yes Emergency Medical Condition: Yes Medical Record Reviewed: Yes Interpretation(s) Last Impressions Head CT 01/04/181924 Signed Impressions: Service Date/Time: Thursday, January 04, 2018 19:54 - CONCLUSION: Unremarkable study. Coty Jay MD Chest X-Ray 01/04/181924 Signed Impressions: Service Date/Time: Thursday, January 04, 2018 19:36 - CONCLUSION: No acute cardiopulmonary disease. Coty Jay MD Wrist X-Ray 01/04/18 Signed Impressions: Service Date/Time: Thursday, January 04, 2018 19:40 - CONCLUSION: Slight osteopenia. Coty Jay MD Shoulder X-Ray 01/04/18 Signed Impressions: Service Date/Time: Thursday, January 04, 2018 19:37 - CONCLUSION: No definite fracture is seen for technique. Coty Jay MD Cervical Spine CT 01/04/18 Signed Impressions: Service Date/Time: Thursday, January 04, 2018 19:56 - CONCLUSION: Slight degenerative spondylosis without any significant compromise to the thecal sac or the exiting nerve roots. Coty Jay MD Differential Diagnosis Right wrist fracture, versus contusion, versus left shoulder fracture, versus before meals separation, versus dislocation, versus intracranial hemorrhage, versus concussion Narrative Course During the course of the patients emergency department visit, the patients history, examination, and differential diagnosis were reviewed with the patient. The patient was placed on a environmental monitoring specialist with oximetry and frequent blood pressure monitoring. The patient had IV access obtained and blood work sent for analysis. A CT scan of the head and neck, chest x-ray, right wrist, left shoulder x-ray have been ordered. The patient had an EKG done on arrival that shows a sinus rhythm heart rate is 66, QRS duration is 79 ms, QTC is [address] segment elevation, T waves are inverted in lead 3, V1. The patient was initially provided normal saline at maintenance rate, Zofran for nausea, Toradol 15 mg IV The patients laboratory studies were reviewed and remarkable for a CBC that shows no acute abnormality, PT 11.8, PTT 24.3. Basic metabolic profile is remarkable for sodium of 134, CO2 33, anion gap 3, BUN 26, creatinine 1.03, Tegretol level was slightly elevated above the normal range up to 12, her level was 12.3. The patient was given a copy of her Tegretol results for further discussion with her physician that monitors this. Radiology studies were reviewed and remarkable for a chest x-ray that shows no acute cardiopulmonary disease, wrist x-ray reveals no acute bony abnormality, slight osteopenia, shoulder x-ray shows no definite fracture seen or other acute abnormality. CT scan of the brain shows no acute abnormality. CT scan of the C-spine shows a slight degenerative spondylosis without any significant compromise to the thecal sac or the exiting nerve roots. The patient is resting comfortably and feels better, is alert and in no distress. The patients results and examination findings were discussed with the patient. The repeat examination is unremarkable and benign. The history, exam, diagnostic testing, and current condition do not suggest any significant pathology to warrant further testing, continued ED treatment, admission, or surgical evaluation at this point. The vital signs have been stable. The patient does not have uncontrollable pain, intractable vomiting, or other significant symptoms. The patient's condition is stable and appropriate for discharge. The patient will pursue further outpatient evaluation with a primary care physician or other designated or consulting physician as indicated in the discharge instructions. The patient expressed understanding and was agreeable with this plan. Diagnosis Primary Impression: Fall Qualified Codes: W19.XXXA - Unspecified fall, initial encounter Additional Impressions: Head injury Qualified Codes: S09.90XA - Unspecified injury of head, initial encounter Right wrist sprain Qualified Codes: S63.501A - Unspecified sprain of right wrist, initial encounter Left shoulder pain Qualified Codes: M25.512 - Pain in left shoulder Elevated Tegretol level Referrals: Charly Mccabe MD 1 week Patient Instructions: General Instructions, Head Injury (ED), Shoulder Pain (ED ), Wrist Sprain (ED) Additional Instructions: Regarding your elevated Tegretol level, follow-up with your physician on monitors this level. A copy of your Tegretol results have been provided during this emergency department visit. Med/Other Pt SpecificInfo: Prescription(s) given Scripts Hydrocodone-Acetaminophen (Hydrocodone-Acetaminophen) 5-300 Mg Tab 1 TAB PO Q6H Y for PAIN, #12 TAB 0 Refills Prov: Neha Pan MD 01/04/18 Disposition: 01 DISCHARGE HOME Condition: Stable Neha Pan MD Jan 04, 2018 19:20
--- NOTE | 2018-01-04 19:52 | RADRPT ---
EXAM DATE/TIME: 01/04/2018 19:36 [facility] COMPARISON: CHEST PA & LAT, December 22, 2016, 8:46. INDICATIONS : Chest pain. MEDICAL HISTORY : None. SURGICAL HISTORY : None. ENCOUNTER: Initial ACUITY: 1 day PAIN SCORE: 5/10 LOCATION: Bilateral chest FINDINGS: The lungs are clear without infiltrate, nodule, or mass. There is no appreciable pleural effusion fo r technique. Heart and mediastinum are unremarkable. There is evidence for prior median sternotomy. CONCLUSION: No acute cardiopulmonary disease. Coty Jay MD on January 04, 2018 at 19:49 Board Certified Radiologist. This report was verified electronically.
--- NOTE | 2018-01-04 19:53 | RADRPT ---
EXAM DATE/TIME: 01/04/2018 19:37 [facility] COMPARISON: CHEST SINGLE AP, January 22, 2016, 8:07. INDICATIONS : Fall, pain in left shoulder. MEDICAL HISTORY : None. SURGICAL HISTORY : None. ENCOUNTER: Initial ACUITY: 1 day PAIN SCORE: 7/10 LOCATION: Left shoulder FINDINGS: No definite fractures, or dislocations are identified. No definite lytic or sclerotic lesion is seen . The joint space is well maintained. Subcentimeter amorphous calcification is present inferior to t he glenohumeral joint of uncertain location present on the chest x-ray from 2016. CONCLUSION: No definite fracture is seen for technique. KRobyn Jay MD on January 04, 2018 at 19:50 Board Certified Radiologist. This report was verified electronically.
--- NOTE | 2018-01-04 19:54 | RADRPT ---
EXAM DATE/TIME: 01/04/2018 19:40 [facility] COMPARISON: No previous studies available for comparison. INDICATIONS : Fall. MEDICAL HISTORY : None. SURGICAL HISTORY : None. ENCOUNTER: Initial ACUITY: 1 day PAIN SCORE: 5/10 LOCATION: Right wrist FINDINGS: No definite fractures, or dislocations are identified. No definite lytic or sclerotic lesion is seen . Slight osteopenia is seen. CONCLUSION: Slight osteopenia. Coty Jay MD on January 04, 2018 at 19:51 Board Certified Radiologist. This report was verified electronically.
--- NOTE | 2018-01-04 20:06 | RADRPT ---
EXAM DATE/TIME: 01/04/2018 19:54 [facility] COMPARISON: CT BRAIN W/O CONTRAST, January 22, 2016, 7:47. INDICATIONS : Trauma; fall. RADIATION DOSE: 56.35 CTDIvol (mGy) MEDICAL HISTORY : Seizures. Cardiovascular disease Hypertension.GERD SURGICAL HISTORY : CABG Tubal ligation. ENCOUNTER: Initial ACUITY: 1 day PAIN SCALE: 5/10 LOCATION: cranial TECHNIQUE: Multiple contiguous axial images were obtained of the head. Using automated exposure control and adj ustment of the mA and/or kV according to patient size, radiation dose was kept as low as reasonably a chievable to obtain optimal diagnostic quality images. DICOM format image data is available electro nically for review and comparison. FINDINGS: There is no evidence for intracranial hemorrhage, mass effect, mass lesions, edema, or extra-axial fl uid collections. The visualized bony structures appear intact. The ventricles are normal size for t he patient's age. There are no signs of acute infarction for technique. CONCLUSION: Unremarkable study. Coty Jay MD on January 04, 2018 at 20:02 Board Certified Radiologist. This report was verified electronically.
[2018-01-04] MEDS ORDERED: MORPHINE SULFATE 2 MG/ML INJ IV PUSH ONE (20:15)
[2018-01-04] MEDS ORDERED: SODIUM CHLOR 0.9% 1000 ML INJ 1,000 ML IV SCH (20:15)
[2018-01-04] MEDS: ONDANSETRON HCL 4 MG/2 ML VIAL IV PUSH ONE ×2 (20:15→20:52)
--- NOTE | 2018-01-04 20:24 | RADRPT ---
EXAM DATE/TIME: 01/04/2018 19:56 [facility] COMPARISON: No previous studies available for comparison. INDICATIONS : Trauma; fall. RADIATION DOSE: 24.79 CTDIvol (mGy) MEDICAL HISTORY : Seizures. Cardiovascular disease Hypertension.GERD SURGICAL HISTORY : CABG Tubal ligation. ENCOUNTER: Initial ACUITY: 1 day PAIN SCALE: 5/10 LOCATION: neck TECHNIQUE: Volumetric scanning of the cervical spine was performed. Multiplanar reconstructions i n the sagittal, coronal and oblique axial planes were performed. Using automated exposure control a nd adjustment of the mA and/or kV according to patient size, radiation dose was kept as low as reason ably achievable to obtain optimal diagnostic quality images. DICOM format image data is available e lectronically for review and comparison. FINDINGS: No significant subluxation or soft tissue swelling is seen. No definite fracture is seen for techniqu e. C2-C3: No appreciable compromised to the thecal sac, exiting nerve roots are seen. The neural cindi ashley are patent bilaterally. No appreciable thecal sac stenosis is seen. C3-C4: No appreciable compromised to the thecal sac, exiting nerve roots are seen. The neural cindi ashley are patent bilaterally. No appreciable thecal sac stenosis is seen. C4-C5: No appreciable compromised to the thecal sac, exiting nerve roots are seen. The neural cindi ashley are patent bilaterally. No appreciable thecal sac stenosis is seen. C5-C6: No appreciable compromised to the thecal sac, exiting nerve roots are seen. The neural cindi ashley are patent bilaterally. No appreciable thecal sac stenosis is seen. Slight degenerative changes are seen within the disc space and facets. C6-C7: No appreciable compromised to the thecal sac, exiting nerve roots are seen. Slight degenerati ve changes are seen within the disc space and facets. The neural foramina are patent bilaterally. No appreciable thecal sac stenosis is seen. C7-T1: No appreciable compromised to the thecal sac, exiting nerve roots are seen. The neural cindi ashley are patent bilaterally. No appreciable thecal sac stenosis is seen CONCLUSION: Slight degenerative spondylosis without any significant compromise to the thecal sac or t he exiting nerve roots. Coty Jay MD on January 04, 2018 at 20:18 Board Certified Radiologist. This report was verified electronically.
[2018-01-04 20:26] VITALS: BP 156/82; PULSE 71; RESP 16; RESP 18; O2SAT 100; O2SAT 99
[2018-01-04 20:50] LABS: AUTOMATED NEUTROPHIL # 3.3 TH/MM3 (1.8-7.7); BASOPHIL # 0.1 TH/MM3 (0-0.2); BASOPHIL % 1.1 % (0.0-2.0); EOSINOPHIL # 0.1 TH/MM3 (0-0.4); EOSINOPHIL % 1.6 % (0.0-4.0); HEMATOCRIT 39.4 % (35.0-46.0); HEMOGLOBIN 13.7 GM/DL (11.6-15.3); LYMPH % 34.2 % (9.0-44.0); MEAN CELL VOLUME 94.5 FL (80.0-100.0); MEAN CORPUSCULAR HGB CONC 34.9 % (32.0-36.0); MEAN PLATELET VOLUME 7.4 FL (7.0-11.0); MONOCYTE # 0.5 TH/MM3 (0-0.9); NEUT % 55.1 % (16.0-70.0); PLATELET COUNT 381 TH/MM3 (150-450); RED BLOOD COUNT 4.16 MIL/MM3 (4.00-5.30); RED CELL DISTRIBUTION WIDTH 12.7 % (11.6-17.2)
[2018-01-04 20:55] LABS: INTERNATIONAL NORMALIZED RATIO 1.2 RATIO; PROTHROMBIN TIME - PATIENT 11.8 SEC (9.8-11.6)
[2018-01-04] MEDS ORDERED: KETOROLAC TROMETHAMINE 30 MG/ML (IVP) VIAL IV PUSH ONE (21:00)
[2018-01-04] MEDS ORDERED: HYDR-4107 PO (21:05)
[2018-01-04 21:13] LABS: CALCIUM 9.3 MG/DL (8.5-10.1); CREATININE 1.03 MG/DL (0.50-1.00)
[2018-01-04 21:15] LABS: CARBAMAZEPINE (TEGRETOL) 12.3 MCG/ML (4.0-12.0)
--- NOTE | 2018-01-05 22:10 | EKG ---
Date Performed: 01/04/2018 Time Performed: 20:23:21 PTAGE: 67 years EKG: Sinus rhythm POSSIBLE LEFT ATRIAL ENLARGEMENT MARKED LEFT AXIS DEVIATION POSSIBLE RIGHT VENTRICULAR CONDUCTION DE LAY ABNORMAL ECG NO PREVIOUS TRACING DOCTOR: Azul Govea Interpretating Date/Time 01/05/2018 22:02:42
== END 2018-01-04 22:15 | disposition home or self-care (01) ==
LOC: NEPC 19:03
DX: S09.90XA Unspecified injury of head, initial encounter (principal); S63.501A Unspecified sprain of right wrist, initial encounter; M25.512 Pain in left shoulder; M47.9 Spondylosis, unspecified; M85.80 Other specified disorders of bone density and structure, unspecified site; R94.31 Abnormal electrocardiogram [ECG] [EKG]; I10 Essential (primary) hypertension; G40.909 Epilepsy, unspecified, not intractable, without status epilepticus; W01.0XXA Fall on same level from slipping, tripping and stumbling without subsequent striking against object, initial encounter
CPT/HCPCS: 70450; 71045; 72125; 73030; 73110; 80048; 80156; 85025; 85610; 85730; 93005; 96374; 99285; J1885; J7030; L3908; J2405